=== PATIENT | male | born 1960 | race Caucasian/White ===

== ENCOUNTER 2017-06-21 19:58 | Inpatient (IN) | payer OTHER ==
[~2017-06-21] VITALS: Ht 172.7 cm; Wt 64.9 kg
[~2017-06-21 19:58] MED LIST: ASPIR 8181 MG PO; AUGMENTIN 875 M1 TAB PO; METOPROLOL SUCC50 M1 PO
--- NOTE | 2017-06-21 20:35 | ED DYSPNEA/ASTHMA COMPLAINT ---
History of Present Illness General Chief Complaint: Dyspnea (COPD, CHF, Other) Stated Complaint: SOB X 4 DAYS Source: patient, family, old records Exam Limitations: no limitations Vital Signs & Intake/Output Vital Signs & Intake/Output Vital Signs Date Time Temp Pulse Resp B/P B/P Pulse O2 O2 Flow FiO2 Mean Ox Delivery Rate 06/21 2200 98.1 77 22 137/83 100 Nasal 5.0L Cannula 06/22 2047 99 Nasal 6.0L Cannula 06/22 1999 97.3 88 24 151/110 94 Nasal 6.0L Cannula Allergies Coded Allergies: NO KNOWN ALLERGIES (06/05/13) Reconcile Medications Acetaminophen 500 MG TABLET 4 TAB PO 5XDAILY PRN PAIN (Reported) Albuterol Sulfate (Proair Hfa) 90 MCG HFA.AER.AD 2 PUF INH PRN COPD (Reported ) Albuterol Sulfate 2.5 MG/3 ML (0.083 %) VIAL.NEB 1 Vial INH/MIMI PRN COPD ( Reported) Aspirin (Ecotrin*) 81 MG TABLET.DR 1 TAB PO DAILY HEART/BLOOD (Reported) Budesonide/Formoterol Fumarate (Symbicort 160-4.5 Mcg Inhaler) 160 MCG-4.5 MCG/ ACTUATION HFA.AER.AD 2 PUF INH BID COPD (Reported) Ibuprofen (Advil) 200 MG CAPSULE 1-2 TAB PO PRN PAIN/INFLAMMATION (Reported) Metoprolol Succinate 100 MG TAB.ER.24H 1 TAB PO DAILY HEART/BP (Reported) Nitroglycerin 0.4 MG TAB.SUBL 1 TAB SL AD PRN CHEST PAIN (Reported) 1st sign of attack; may repeat every 5 minutes until relief; if pain persists after 3 tablets in 15 minutes, prompt medical att Tamsulosin HCl (Flomax) 0.4 MG CAP.ER.24H 1 CAP PO DAILY PROSTATE (Reported) Core Measure Meds Pre-Hospital aspirin Triage Note: PT TO TRIAGE C/O SOB AND "COLD LIKE SYMPTOMS" X 4 DAYS. PT BASELINE 6L NC D/T COPD AND CURRENT SOME DAY SMOKER. 02 SAT IN TRIAGE 94% PT WITH INCREASED WORK OF BREATHING, WHEEZES NOTED THROUGHOUT AND HYPERTENSIVE 151/110. Triage Nurses Notes Reviewed? yes Onset: 2 days Duration: day(s):, constant, continues in ED, getting worse Timing: recent history Severity: severe Activities at Onset: rest Prior Episodes/Possible Cause: allergen exposure, illness exposure Modifying Factors: Worsens With: movement. Associated Symptoms: cough, wheezing, weakness HPI: 2 days prior to admission patient complains of harsh nonproductive cough progressive shortness of breath wheezing starting himself on prednisone. He denies fever chills nausea vomiting diarrhea abdominal pain chest pain headache dysuria rash bleeding. Past History Travel History Traveled to [place] past 21 day No Medical History Any Pertinent Medical History? 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 No Review of Systems Review of Systems Constitutional: Reports: no symptoms. EENTM: Reports: no symptoms. Respiratory: Reports: see HPI, cough, short of breath, wheezing. Denies: sputum production. Cardiovascular: Reports: no symptoms. GI: Reports: no symptoms. Genitourinary: Reports: no symptoms. Musculoskeletal: Reports: no symptoms. Skin: Reports: no symptoms. Neurological/Psychological: Reports: no symptoms. Hematologic/Endocrine: Reports: no symptoms. Immunologic/Allergic: Reports: no symptoms. All Other Systems: Reviewed and Negative Physical Exam Physical Exam General Appearance: well developed/nourished, alert, awake, anxious, severe distress Head: atraumatic, normal appearance Eyes: Bilateral: normal appearance, PERRL, EOMI. Ears, Nose, Throat: normal pharynx, normal ENT inspection, hearing grossly normal Neck: normal inspection, supple, full range of motion, no midline tenderness Respiratory: chest non-tender, decreased breath sounds, rhonchi, wheezing, respiratory distress Cardiovascular: regular rate/rhythm, normal peripheral pulses, norml femoral pulses equa Peripheral Pulses: 4+ carotid (R), 4+ carotid (L) Gastrointestinal: normal bowel sounds, soft, non-tender, no organomegaly Extremities: normal inspection, normal capillary refill, normal range of motion, no edema Neurologic/Psych: no motor/sensory deficits, awake, alert, oriented x 3, normal mood/affect, compensation/benefits specialist II-XII nml as tested Skin: intact, normal color, warm/dry Lymphatic: no anterior cervical suma Core Measures ACS in differential dx? No CVA/TIA Diagnosis No Sepsis Present: No Sepsis Focused Exam Completed? No Progress Differential Diagnosis: asthma, bronchitis, CHF, COPD, pneumonia Plan of Care: Orders Procedure Date/time Status Regular Diet 06/22 B Active Patient Data 06/21 2238 Active OXYGEN SETUP (GEN) 06/21 2218 Active Saline Lock 06/21 2218 Active Admit to inpatient 06/21 2218 Active Vital Signs 06/21 2218 Active Activity/Ambulation 06/21 2218 Active BLOOD CULTURE 06/21 2218 Active Code Status 06/21 2218 Active ARTERIAL BLOOD GAS (GEN) 06/22 2027 Active BLOOD CULTURE 06/22 2027 Active TROPONIN LEVEL 06/22 2027 Complete MAGNESIUM 06/22 2027 Complete COMPREHENSIVE METABOLIC PANEL 06/22 2027 Complete CBC WITHOUT DIFFERENTIAL 06/22 2027 Complete B-TYPE NATRIURETIC PEP (BNP) 06/22 2027 Complete EKG 06/22 1999 Active Current Medications Sig/Rebel Start time Last Medication Dose Stop Time Status Admin Magnesium Sulfate 1 GM Q2H 06/21 2029 AC 06/21 (Mag Sulfate in D5) 06/22 Dextrose/Water 100 ML (D5W) Laboratory Tests 06/21/172039: pH 7.38, pCO2 50 H, pO2 174 H, HCO3 29 H, ABG O2 Sat (Measured) 98.0, P-50 ( Temp Corrected) N, Carboxyhemoglobin 0.6 L, O2 Concentration % 6L, Temperature 97.3, O2 Delivery Method NC, Phlebotomy Draw Site RIGHT RADIAL 06/21/172029: Anion Gap 11, Estimated GFR > 60, BUN/Creatinine Ratio 28.6 H, Glucose 114 H, Calcium 9.6, Magnesium 2.1, Total Bilirubin 1.0, AST 68 H, ALT 53, Alkaline Phosphatase 55, Troponin I < 0.01, Gla-D-Banjvshtdnp Pept 173 H, Total Protein 7.5, Albumin 4.4, Globulin 3.1, Albumin/Globulin Ratio 1.4, CBC w Diff NO MAN DIFF REQ, RBC 5.20, MCV 89.8, MCH 30.0, MCHC 33.4, RDW 13.7, MPV 8.8, Gran % 75.4 H, Lymphocytes % 13.0 L, Monocytes % 11.5 H, Eosinophils % 0, Basophils % 0.1, Absolute Granulocytes 6.9 H, Absolute Lymphocytes 1.2, Absolute Monocytes 1.0 H, Absolute Eosinophils 0, Absolute Basophils 0 Microbiology 06/21 221 BLOOD: Blood Culture - ORD 06/21 2029 BLOOD: Blood Culture - RECD Diagnostic Imaging: Viewed by Me: Radiology Read. Discussed w/RAD: Radiology Read. CXR Impression: no acute abnormality, Lung hyperinflation. No consolidations. Initial ED EKG: normal axis, normal intervals, normal p-waves, normal QRS complex, normal sinus rhythm, no ST T wave changes Prior EKG: unchanged Rhythm Strip: normal sinus rhythm Departure Departure Time of Disposition: 2256 Disposition: STILL A PATIENT Condition: Stable Clinical Impression Primary Impression: Decompensated COPD with exacerbation (chronic obstructive pulmonary disease ) Departure Forms: Customer Survey General Discharge Information Admission Note Spoke With: Anthony Miller MD Documentation of Exam: Documentation of any treatments & extenuating circumstances including Concerns Regarding Discharge (functional status, medication knowledge or non-compliance, living conditions, etc.) that warrant an admission rather than observation: Supplemental oxygen serial beta agonist nebs medication adjustment IV antibiotics IV steroids physical therapy continuing care discharge planning Critical Care Note Critical Care Note Critical Care Time: 30-74 min (45)
[2017-06-21 20:41] LABS: ABSOLUTE BASOPHIL COUNT 0 /CUMM (0.0-0.2); ABSOLUTE EOSINOPHIL COUNT 0 /CUMM (0.0-0.7); ABSOLUTE GRANULOCYTE CT 6.9 /CUMM (1.4-6.5); ABSOLUTE LYMPH COUNT 1.2 /CUMM (1.2-3.4); BASOPHIL % 0.1 % (0.0-2.0); EOSINOPHIL % 0 % (0-5); GRANULOCYTE % 75.4 % (42.2-75.2); HEMATOCRIT 46.7 % (42-52); MEAN CORPUSCULAR HGB CONC 33.4 G/DL (33.0-37.0); MEAN CORPUSCULAR VOLUME 89.8 FL (80.0-94.0); MEAN PLATELET VOLUME 8.8 FL (7.4-10.4); PLATELET COUNT 207 /CUMM (130-400); RBC DISTRIBUTION WIDTH 13.7 % (11.5-14.5); WHITE BLOOD CELL COUNT 9.1 /CUMM (4.8-10.8)
--- NOTE | 2017-06-21 20:54 | RADIOLOGY REPORT ---
EXAMINATION: CHEST 1 VIEW CLINICAL INFORMATION: COPD. Rhonchi. Cough. COMPARISON: 01/06/2014. TECHNIQUE: An AP view of the chest is provided. FINDINGS: The cardiac silhouette is not enlarged. The mediastinal and hilar contours are unremarkable. There are neither pleural effusions nor pneumothoraces. There are no consolidations. The lungs are hyperinflated. The osseous structures are unremarkable. IMPRESSION: Lung hyperinflation. No consolidations.
[2017-06-21] MEDS ORDERED: METOPROLOL SUC100 M2 PO (21:35)
[2017-06-21] MEDS ORDERED: NITROGLYCERIN0.4 M1 SL (21:35)
[2017-06-21] MEDS ORDERED: PROAIR HFA8.5 GM INH (21:35)
[2017-06-21] MEDS ORDERED: SYMBICORT 16010.2 GM INH (21:36)
[2017-06-21] MEDS ORDERED: ALBUTEROL2.5 MG/3 M INH/SOL (21:36)
[2017-06-21] MEDS ORDERED: FLOMAX0.4 M1 PO (21:36)
[2017-06-21] MEDS ORDERED: ACETAMINOPHEN500 M4 PO (21:37)
[2017-06-21] MEDS ORDERED: ASPIRIN EC81 M1 PO (21:38)
[2017-06-21] MEDS ORDERED: ADVIL200 M1 PO (21:38)
--- NOTE | 2017-06-21 23:17 | History & Physical ---
Hudson Adams MD 06/21/17 1202: General Information and HPI MD Statement: I have seen and personally examined DUARTE SCHULZ and documented this H&P. The patient is a 57 year old M who presented with a patient stated chief complaint of [COPD exacerbation with a syncopal episode]. Source of Information: patient, old records Exam Limitations: poor historian History of Present Illness: Patient is a 57-year-old male with a PMH significant for COPD on 6 L home O2 at baseline, HTN, paroxysmal A. fib not on anticoagulation by patient's choice, CAD with CT approximately 4 years ago, CVA approximately 4 years ago, who presents complaining of a one-week history of worsening dyspnea, cough and a syncopal episode. Patient states that for the last week he has had worsening dyspnea which started on his exertional and then became constant. His normal nebulizer and inhaler treatments did not improve his dyspnea, he also use prednisone that was prescribed for a friend which also did not help his symptoms, patient has had periods of being on chronic prednisone. He has also had a nonproductive cough with chest pain of the lateral chest bilaterally, worsened with cough. Describes this pain as sharp and constant. Today he experienced shortness of breath, lightheadedness, diaphoresis during a coughing spell during which he lost consciousness. This episode was unwitnessed, however he reports that this has happened previously with severe COPD exacerbations. In the past patient has been intubated in the ICU for a COPD exacerbation approximately 5 years ago, his last hospital admission for COPD was approximately 4 years ago. 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 Wheezing, Of note the patient reports approximately six-month history of orthopnea requiring 5 pillows to sleep comfortably, he also reports intermittent paroxysmal nocturnal dyspnea. Patient also reports taking approximately 2 g of Tylenol daily for chest pain with breakthrough ibuprofen. Patient denies any fever, chills, nausea, vomiting. [facility] for [facility] and pulmonology. Allergies/Medications Allergies: Coded Allergies: NO KNOWN ALLERGIES (06/05/13) Home Med list Acetaminophen 500 MG TABLET 4 TAB PO 5XDAILY PRN PAIN (Reported) Albuterol Sulfate (Proair Hfa) 90 MCG HFA.AER.AD 2 PUF INH PRN COPD (Reported ) Albuterol Sulfate 2.5 MG/3 ML (0.083 %) VIAL.NEB 1 Vial INH/MIMI PRN COPD ( Reported) Aspirin (Ecotrin*) 81 MG TABLET.DR 1 TAB PO DAILY HEART/BLOOD (Reported) Budesonide/Formoterol Fumarate (Symbicort 160-4.5 Mcg Inhaler) 160 MCG-4.5 MCG/ ACTUATION HFA.AER.AD 2 PUF INH BID COPD (Reported) Ibuprofen (Advil) 200 MG CAPSULE 1-2 TAB PO PRN PAIN/INFLAMMATION (Reported) Metoprolol Succinate 100 MG TAB.ER.24H 1 TAB PO DAILY HEART/BP (Reported) Nitroglycerin 0.4 MG TAB.SUBL 1 TAB SL AD PRN CHEST PAIN (Reported) 1st sign of attack; may repeat every 5 minutes until relief; if pain persists after 3 tablets in 15 minutes, prompt medical att Tamsulosin HCl (Flomax) 0.4 MG CAP.ER.24H 1 CAP PO DAILY PROSTATE (Reported) Past History Travel History Traveled to [place] past 21 day No Medical History Neurological: CVA EENT: NONE Cardiovascular: AFIB, hypertension, myocardial infarction Respiratory: COPD Gastrointestinal: NONE Hepatic: NONE Renal: NONE Musculoskeletal: NONE Psychiatric: NONE Endocrine: NONE Blood Disorders: NONE Cancer(s): NONE 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 Home Services at Home: None Primary Language: Honduran Smoking Status: Former Smoker (90 pack year hx quit 3 wks ago) ETOH Use: denies use Illicit Drug Use: marijuana (last used 4 days ago) Living Will? no Functional Ability ADLs Independent: dressing, eating, toileting, bathing. Ambulation: independent IADLs Independent: shopping, housework, finances, food prep, telephone, transportation , medication admin. Review of Systems Review of Systems Constitutional: Denies: chills, fever. EENTM: Reports: no symptoms. Cardiovascular: Reports: chest pain, orthopena, syncope. Denies: palpitations, peripheral edema. Respiratory: Reports: cough, orthopnea, short of breath, wheezing. Denies: hemoptysis, sputum production. GI: Reports: no symptoms. Genitourinary: Reports: no symptoms. Musculoskeletal: Reports: no symptoms. Skin: Reports: no symptoms. Neurological/Psychological: Reports: no symptoms. Exam & Diagnostic Data Last 24 Hrs of Vital Signs/I&O Vital Signs Date Time Temp Pulse Resp B/P B/P Pulse O2 O2 Flow FiO2 Mean Ox Delivery Rate 06/22 0018 97.9 87 25 137/83 06/21 2330 84 16 133/90 98 Nasal 6.0L Cannula 06/211 98.1 77 22 137/83 100 Nasal 5.0L Cannula 06/22 2047 99 Nasal 6.0L Cannula 06/22 1999 97.3 88 24 151/110 94 Nasal 6.0L Cannula Intake & Output 06/22 0800 06/22 0000 06/21 1600 Intake Total 1100 Output Total Balance 1100 Intake, IV 1000 Intake, Oral 100 Patient 160 lb Weight Weight Reported by Patient Measurement Method Physical Exam General Appearance Alert, Oriented X3, Cooperative, Mild Distress (respiratory) Skin Temp/Moisture Exam: Warm/Dry Sepsis Skin Exam (color): Normal for Ethnicity HEENT Atraumatic, PERRLA, EOMI Cardiovascular Regular Rate, Normal S1, Normal S2 Lungs diffuse expiratory wheezing, with prolonged expiratory phase, mild respiratory distress, using accessory muscles Abdomen Normal Bowel Sounds, Soft, No Tenderness Neurological Normal Speech, Normal Tone, Sensation Intact Extremities No Clubbing, No Cyanosis, No Edema Last 24 Hrs of Labs/Fercho: Laboratory Tests 06/22/17 0141: Urine Opiates Screen < 100, Methadone Screen < 40, Barbiturate Screen < 60, Ur Phencyclidine Scrn < 6.00, Amphetamines Screen < 100, U Benzodiazepines Scrn < 85, Urine Cocaine Screen < 50, Urine Cannabis Screen > 80.00 H 06/21/172039: pH 7.38, pCO2 50 H, pO2 174 H, HCO3 29 H, ABG O2 Sat (Measured) 98.0, P-50 ( Temp Corrected) N, Carboxyhemoglobin 0.6 L, O2 Concentration % 6L, Temperature 97.3, O2 Delivery Method NC, Phlebotomy Draw Site RIGHT RADIAL 06/21/172029: Anion Gap 11, Estimated GFR > 60, BUN/Creatinine Ratio 28.6 H, Glucose 114 H, Calcium 9.6, Magnesium 2.1, Total Bilirubin 1.0, AST 68 H, ALT 53, Alkaline Phosphatase 55, Troponin I < 0.01, Tea-W-Qcwpzgzwfip Pept 173 H, Total Protein 7.5, Albumin 4.4, Globulin 3.1, Albumin/Globulin Ratio 1.4, CBC w Diff NO MAN DIFF REQ, RBC 5.20, MCV 89.8, MCH 30.0, MCHC 33.4, RDW 13.7, MPV 8.8, Gran % 75.4 H, Lymphocytes % 13.0 L, Monocytes % 11.5 H, Eosinophils % 0, Basophils % 0.1, Absolute Granulocytes 6.9 H, Absolute Lymphocytes 1.2, Absolute Monocytes 1.0 H, Absolute Eosinophils 0, Absolute Basophils 0, Acetaminophen Pending Microbiology 06/22 149 LOWER RESP: Respiratory Culture - RECD 06/22 149 LOWER RESP: Gram Stain - RECD 06/22 149 BLOOD: Blood Culture - RECD 06/22 129 NASOPHARYN: Influenza Virus A & B Rapid Smear - RECD 06/21 2029 BLOOD: Blood Culture - RECD Diagnostic Data EKG Results NSR, HR 78, QTc 417, no significant ST-T changes CXR Results The cardiac silhouette is not enlarged. The mediastinal and hilar contours are unremarkable. There are neither pleural effusions nor pneumothoraces. There are no consolidations. The lungs are hyperinflated. The osseous structures are unremarkable. IMPRESSION: Lung hyperinflation. No consolidations. Assessment/Plan Assessment: Patient is a 57-year-old male with a PMH significant for COPD on 6 L home O2 at baseline, HTN, paroxysmal A. fib not on anticoagulation by patient's choice, CAD with CT approximately 4 years ago, CVA approximately 4 years ago, who presents complaining of a one-week history of worsening dyspnea, cough and a syncopal episode. Patient's syncopal episode was associated with a coughing spell, diaphoresis, lightheadedness. Vital signs on admission: T 97.3, P 88, RR 24, BP 151/110, pulse ox 94% on 6 L Labs: ABG: trop < 0.01, 7.38/50/174/29 ProBNP mildly elevated at 173 Problem list #Acute on chronic hypercarbic respiratory failure #COPD exacerbation, likely secondary to URI #Syncopal episode, likely vasovagal #Chronic medical problems Plan -Admit to telemetry -Continuous telemetry monitoring, given history of A. fib and recent syncopal episode must rule out arrhythmia -Rule out CT given chest pain and syncopal episode, serial troponin and EKG -echo -TRC/nebs -IV azithromycin -IV Solu-Medrol 40 mg every 8 hours -Follow-up sputum culture, blood cultures, flu swab -Cardiology consult in the a.m., patient follows at [facility] -Pulmonology consult in the a.m., patient follows at the [facility] -Obtain records from [facility] -Follow-up acetaminophen levels -Encouraged continued smoking cessation -Nicotine patch -Continue home medications Diet: Heart healthy DVT prophylaxis: Lovenox, Alps CODE STATUS: DNI As Ranked By This Provider Problem List: 1. Decompensated COPD with exacerbation (chronic obstructive pulmonary disease ) Core Measures/Misc (12/03) Acute Coronary Syndrome ACS Diagnosis: No Congestive Heart Failure Congestive Heart Failure Diagnosis No Cerebrovascular Accident CVA/TIA Diagnosis: No VTE (View Protocol) VTE Risk Factors Smoker No Mechanical VTE Prophylaxis d/t N/A MechProphylax Ordered No VTE Pharm Prophylaxis d/t NA PharmProphylax ordered Sepsis (View protocol) Sepsis Present: No Annie Diop 06/22/17 0351: Resident Review Statement Resident Statement: examined this patient, discussed with commissioner of internal revenue Other Findings: 57-year-old gentleman former smoker recently quit 3 weeks ago, with past medical history significant for COPD on 6 L of nasal cannula at home, history of intubation for COPD exacerbation about 5 years ago, polysubstance abuse, BPH depression, hypertension, proximal A. fib on aspirin and not on anticoagulation secondary to patient's patient's choice, coronary artery disease, CT and ?CVA/ TIA proximally 4 years ago with no residual weakness coming in for evaluation of worsening shortness of breath of 4 days duration associated with cough. Apparently he is also on chronic prednisone which he ran out off and he used his friend's prednisone the last 2 days earlier today he had a unwitnessed syncopal episode after he coughed. Loss of consciousness was according to him approximately a few seconds. Earlier today he also had an episode of chest pain which worsened when his cough, nonradiating sharp and constant, associated with lightheadedness and diaphoresis. Endorses orthopnea and sleeps on 5 pillows at baseline and proximal nocturnal dyspnea. Denies fever, chills, nausea, vomiting, rash, weakness/tingling of extremities, difficulty speaking. Of note he does use 2 g IV Tylenol alternating with ibuprofen on a daily basis for chronic pain He has most of his follow-ups done at [facility]. His radiation safety officer and instructional technology director are also at the [facility]. Vitals temperature 98.1, heart rate 77, respiratory 22, blood pressure 151/110-- > 137/83, 100% on 5 L On examination patient is moderately respiratory distress, muscles of accessory respiratory muscles in use with audible wheezes noted, RS diffuse expiratory wheezing throughout all lung areas, CVS S1-S2 no murmurs appreciated, abdomen soft nontender, no pedal edema noted Labs significant for W BC 9.1, hemoglobin 15.6, hematocrit 46.7, platelet 27, sodium 139, potassium 4.7, chloride 93, bicarbonate 35, B1 20, creatinine 0.7 Glucose 114, AST 68, ALT 53, ABG 7.38/50/174/29 Chest x-ray shows no acute pathology EKG normal sinus rhythm, rate 77, QTC 417 Assessment and plan: Syncope/Paroxyxmal Atrial fibrillation/Hypertension: His syncope was likely vasovagal however will admit to telemetry floor to rule out any cardiogenic pathology continuous cardiac monitoring Trend troponin/EKG Echocardiogram Cardio consult in a.m. Continue metoprolol and aspirin Acute on chronic COPD exacerbation likely secondary to upper respiratory infection TRCnebs, continue with pro-air Continue with azithromycin, and IV Solu-Medrol 40 every 8 Pulm consult in the morning BPH Continue Flomax Smoking cessation/marijuana use Nicotine patch Follow-up urine tox and Tylenol level DVT prophylaxis with subcutaneous Lovenox Patient is a DNI but he is okay with chest compressions Anthony Miller 06/22/17 0525: Attending MD Review Statement Attending Statement Attending MD Statement: examined this patient, discuss w/resident/PA/LAND EXAMINER, agreed w/resident/PA/LAND EXAMINER, reviewed EMR data (avail), reviewed images, amended to note Attending Assessment/Plan: CC: Shortness of breath PMH: COPD on 6 L nasal cannula oxygen, depression, chest pain, HTN, A. fib, CAD S/P CT, no stents, CVA with no residual weakness Patient presented to ER for 1 week history of dry cough, wheezing, shortness of breath initially with exertion and now even at rest, waking up in the night with shortness of breath, cannot lie down flat. Symptoms followed after nasal congestion and nasal discharge. 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 He also complains of bilateral chest pain/ soreness with excessive coughing, nonpleuritic, nonradiating. Today with a coughing bout he felt lightheaded, could not catch air and then passed out. Next thing he remembers is waking up on the floor. For the severe at the of symptoms he came to ER. He denies any fever, chills, nausea, vomiting, constipation, urinary symptoms, complete ROS unremarkable otherwise. Patient is compliant with his doctor's visit and medication, he usually does not go to ER, last hospitalization for COPD approximately 4-5 years back. Vitals: Afebrile, pulse 88, RR 24, blood pressure 151/110, saturating 94% on 6 L nasal cannula. On exam: A O 3, cooperative, thin built, in moderate respiratory distress, accessory muscles in use, neck supple, JVD normal, no lymphadenopathy, mucosa moist, no focal neurological deficit, no dependent edema, no obvious skin rashes or inflammation CVS: S1-S2, RRR. RS: Prolonged expiration, bilateral wheezing extensively. Abdomen: Soft, NT, ND, bowel sounds present. Peripheral pulses perfusion normal CXR: Lung hyperinflation. No consolidations. Assessment and plan 57-year-old male with extensive past medical history presented in ER for worsening wheezing, shortness of breath, dry cough. He has extensive wheezing on auscultation, accessory muscles in use but he is at his baseline oxygen at 6 L saturating well. ABG showed mild respiratory acidosis which is compensated. Patient appears to have COPD exacerbation, chest x-ray does not have any evidence of pneumonia, no significant leukocytosis or fever. Patient also had an episode of syncope, it appears vasovagal as he had a coughing bout followed by passing out episode but given his cardiac history, and risks factors, we will watch him on telemetry for first 24-48 hours rule out other causes of syncope. + COPD exacerbation + Syncope + Chronic respiratory failure + History of COPD on 6 L nasal cannula oxygen, depression, chest pain, HTN, A. fib, CAD S/P CT, no stents, CVA with no residual weakness - Admit to telemetry - Continuous telemetry monitoring - Serial troponin and EKG - Orthostatic vitals - 2-D echocardiogram in a.m. - Cardiology consult - DVT prophylaxis - Adequate pain control - Continue oxygen support - IV methylprednisolone 40 mg every 8 hours - IV azithromycin - TRC nebulization with albuterol and ipratropium scheduled and when necessary - Mucinex scheduled twice a day - Continue rest of the home medications - Pulmonology consult - f/u influenza test
[2017-06-22 04:36] VITALS: BP 136/80
--- NOTE | 2017-06-22 05:26 | Admission Certification ---
Admission Certification Certification Statement - As attending physician, I certify that at the time of - admission, based on clinical presentation, severity of - symptoms, need for further diagnostic testing and - therapeutic interventions, and risk of adverse outcomes - without in-hospital treatment, in my clinical assessment, - this patient requires an acute hospital stay for a minimum - of two nights or longer. I have also considered psychsocial - factors such as support system, advanced age, financial - issues, cognitive issues, and failed out-patient treatments, - past re-admission history, safety of patient, and lack of - compliance as applicable. Specific rationale supporting this admission is: COPD exacerbation, syncope
--- NOTE | 2017-06-22 07:04 | PN- Housestaff ---
[facility] Subjective Follow-up For: COPD exacerbation possibly secondary to acute bronchitis Syncope Tele-Events Since Last Visit: SR with HR 72-7 Subjective: Patient remained afebrile. Patient seen and examined this morning. Patient using 4 L of oxygen and maintaining saturation 97%. Patient reported having nasal congestion and intermittent cough. Patient denied any chest pain, short of breath, nausea, vomiting, chills, fever, abdominal pain dysuria. Review of Systems Constitutional: Reports: no symptoms. EENTM: Reports: no symptoms. Cardiovascular: Denies: chest pain, palpitations. Respiratory: Reports: cough. Denies: short of breath, sputum production. Gastrointestinal: Reports: no symptoms. Genitourinary: Reports: no symptoms. Musculoskeletal: Reports: no symptoms. Neurological/Psychological: Reports: no symptoms. Objective Last 24 Hrs of Vital Signs/I&O Vital Signs Date Time Temp Pulse Resp B/P B/P Pulse O2 O2 Flow FiO2 Mean Ox Delivery Rate 06/22 0436 97.8 71 22 136/80 98 Nasal 6.0L Cannula 06/22 0428 Nasal 6.0L Cannula 06/22 0419 65 20 100 Nasal 6.0L Cannula 06/22 0018 97.9 87 25 137/83 06/21 2330 84 16 133/90 98 Nasal 6.0L Cannula 06/21 2201 98.1 77 22 137/83 100 Nasal 5.0L Cannula 06/21 2048 99 Nasal 6.0L Cannula 06/21 2000 97.3 88 24 151/110 94 Nasal 6.0L Cannula Intake & Output 06/22 1600 06/22 0800 04 0000 Intake Total 1320 Output Total 900 Balance 420 Intake, IV 1000 Intake, Oral 320 Output, Urine 900 Patient 150 lb 160 lb Weight Weight Reported by Patient Reported by Patient Measurement Method Physical Exam General Appearance: Alert, Oriented X3, Cooperative, No Acute Distress Skin Temp/Moisture Exam: Warm/Dry Sepsis Skin Exam (color): Normal for Ethnicity HEENT: Atraumatic, PERRLA, EOMI Neck: Supple Cardiovascular: Normal S1, Normal S2 Lungs: B/L WHEEZING Abdomen: Soft, No Tenderness Neurological: Normal Speech, Strength at 5/5 X4 Ext, Normal Tone, Sensation Intact Extremities: No Edema Assessment/Plan Assessment: Patient is a 57-year-old male with a PMH significant for COPD on 6 L home O2 at baseline, HTN, paroxysmal A. fib not on anticoagulation by patient's choice, CAD with ND approximately 4 years ago, CVA approximately 4 years ago, who presents complaining of a one-week history of worsening dyspnea, cough and a syncopal episode. We are following the patient on telemetry floor for following problems: Syncope episode: -Probably due to vasovagal syncope -We will rule out any arrhythmias or acute cardiac ischemic event. -Serial EKGs and troponins -Cardiac consult -Echocardiogram -Orthostatic vitals COPD exacerbation: -Possibly secondary to acute bronchitis -Chronic hypercarbic respiratory failure -Patient COPD exacerbation secondary to upper respiratory tract infection -IV Solu-Medrol -TRC nebulization -Mucinex -Supplemental oxygen as needed to keep oxygen saturation above 92% -IV azithromycin -Follow sputum and blood cultures -Influenza test is pending -Pulmonology consult Smoking cessation: -Nicotine patch as needed History of hypertension: -Continue home medications History of BPH: -Continue home medications History of A. fib and CAD: -Not on any anticoagulation -Continue home medications DVT prophylaxis: -Mechanical and subcutaneous Lovenox CODE STATUS: DNI Problem List: 1. COPD exacerbation Pain Ratin Pain Location: NONE Pain Goal: Remain pain free Pain Plan: PAIN PATHWAY Tomorrow's Labs & Rationales: NONE Favio Juarez MD 06/22/17 1033: Attending MD Review Statement Attending Statement Attending MD Statement: examined this patient, discuss w/resident/PA/PSYCHOMETRIST, agreed w/resident/PA/PSYCHOMETRIST, reviewed EMR data (avail) Attending Assessment/Plan: 57M PMH COPD on 6 L nasal cannula oxygen, depression, chest pain, HTN, A. fib, CAD S/P ND, no stents, CVA with no residual weakness admitted with worsening shortness of breath and cough with syncopal episode provoked by coughing fit, in the setting of COPD exacerbation secondary to acute bronchitis. Patient reports that he still has difficulty breathing and moving air in and out of his lungs, though it is better than yesterday. He is having a dry cough. He denies chest pain, palpitations, diaphoresis. No further episodes of syncope. He is currently saturating well on 4L NC. No evidence of pneumonia clinically or by imaging. 1. COPD Exacerbation 2. Acute bronchitis 3. Chronic hypoxemic respiratory failure 4. Syncope, most likely vasovagal Plan - Continue on telemetry - Continue Solumedrol at current dose - Continue Azithromyin - Collect sputum culture if possible - Follow cardiology recommendations - Continue home medications - DVT PPx
[2017-06-22 15:20] VITALS: BP 112/60; BP 116/54
--- NOTE | 2017-06-22 18:44 | Cons- Pulmonary ---
General Information and HPI Consulting Request Date of Consult: 06/22/17 Requested By: Med team History of Present Illness: Patient is a 57-year-old male with a PMH significant for COPD on 6 L home O2 at baseline, HTN, paroxysmal A. fib not on anticoagulation by patient's choice, CAD with MT approximately 4 years ago, CVA approximately 4 years ago, who presents complaining of a one-week history of worsening dyspnea, cough and a syncopal episode. Patient states that for the last week he has had worsening dyspnea which started on his exertional and then became constant. His normal nebulizer and inhaler treatments did not improve his dyspnea, he also use prednisone that was prescribed for a friend which also did not help his symptoms, patient has had periods of being on chronic prednisone. He has also had a nonproductive cough with chest pain of the lateral chest bilaterally, worsened with cough. Describes this pain as sharp and constant. Today he experienced shortness of breath, lightheadedness, diaphoresis during a coughing spell during which he lost consciousness. This episode was unwitnessed, however he reports that this has happened previously with severe COPD exacerbations. In the past patient has been intubated in the ICU for a COPD exacerbation approximately 5 years ago, his last hospital admission for COPD was approximately 4 years ago. 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 Wheezing, Of note the patient reports approximately six-month history of orthopnea requiring 5 pillows to sleep comfortably, he also reports intermittent paroxysmal nocturnal dyspnea. Patient also reports taking approximately 2 g of Tylenol daily for chest pain with breakthrough ibuprofen. Patient denies any fever, chills, nausea, vomiting. Patient follows with the [place] for cardiology and pulmonology. Allergies/Medications Allergies: Coded Allergies: NO KNOWN ALLERGIES (06/05/13) Home Med List: Acetaminophen 500 MG TABLET 4 TAB PO 5XDAILY PRN PAIN (Reported) Albuterol Sulfate (Proair Hfa) 90 MCG HFA.AER.AD 2 PUF INH PRN COPD (Reported ) Albuterol Sulfate 2.5 MG/3 ML (0.083 %) VIAL.NEB 1 Vial INH/MIMI PRN COPD ( Reported) Aspirin (Ecotrin*) 81 MG TABLET.DR 1 TAB PO DAILY HEART/BLOOD (Reported) Budesonide/Formoterol Fumarate (Symbicort 160-4.5 Mcg Inhaler) 160 MCG-4.5 MCG/ ACTUATION HFA.AER.AD 2 PUF INH BID COPD (Reported) Ibuprofen (Advil) 200 MG CAPSULE 1-2 TAB PO PRN PAIN/INFLAMMATION (Reported) Metoprolol Succinate 100 MG TAB.ER.24H 1 TAB PO DAILY HEART/BP (Reported) Nitroglycerin 0.4 MG TAB.SUBL 1 TAB SL AD PRN CHEST PAIN (Reported) 1st sign of attack; may repeat every 5 minutes until relief; if pain persists after 3 tablets in 15 minutes, prompt medical att Tamsulosin HCl (Flomax) 0.4 MG CAP.ER.24H 1 CAP PO DAILY PROSTATE (Reported) Review of Systems Review of Systems Constitutional: Denies: see HPI. Comments Denies: chills, fever. EENTM: Reports: no symptoms. Cardiovascular: Reports: chest pain, orthopena, syncope. Denies: palpitations, peripheral edema. Respiratory: Reports: cough, orthopnea, short of breath, wheezing. Denies: hemoptysis, sputum production. GI: Reports: no symptoms. Genitourinary: Reports: no symptoms. Musculoskeletal: Reports: no symptoms. Skin: Reports: no symptoms. Neurological/Psychological: Reports: no symptoms. 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 Home Services at Home: None Primary Language: [place] Smoking Status: Current Some Day Smoker (90 pack year hx quit 3 wks ago) ETOH Use: denies use Illicit Drug Use: marijuana (last used 4 days ago) Living Will? no Functional Ability ADLs Independent: dressing, eating, toileting, bathing. Ambulation: independent IADLs Independent: shopping, housework, finances, food prep, telephone, transportation , medication admin. Exam & Diagnostic Data Last 24 Hrs of Vital Signs/I&O Vital Signs Date Time Temp Pulse Resp B/P B/P Pulse O2 O2 Flow FiO2 Mean Ox Delivery Rate 06/22 1520 97.8 70 22 116/54 94 06/22 1520 97.5 75 22 112/60 98 06/22 1035 Nasal 6.0L Cannula 06/22 1034 96 Nasal 6.0L Cannula 06/22 0934 66 120/78 06/22 0934 66 120/78 06/22 0800 96 Nasal 2.0L Cannula 06/22 0436 97.8 71 22 136/80 98 Nasal 6.0L Cannula 06/22 0428 Nasal 6.0L Cannula 06/22 0419 65 20 100 Nasal 6.0L Cannula 06/22 0018 97.9 87 25 137/83 06/21 2330 84 16 133/90 98 Nasal 6.0L Cannula 06/21 2201 98.1 77 22 137/83 100 Nasal 5.0L Cannula 06/218 99 Nasal 6.0L Cannula 06/22 1999 97.3 88 24 151/110 94 Nasal 6.0L Cannula Intake & Output 06/22 1600 06/22 0800 06/22 0000 Intake Total 320 1320 Output Total 900 Balance 320 420 Intake, IV 20 1000 Intake, Oral 300 320 Output, Urine 900 Patient 150 lb 160 lb Weight Weight Reported by Patient Reported by Patient Measurement Method Last 48 Hrs of Labs/Fercho: Laboratory Tests 06/22/17 0325: Troponin I < 0.01 06/22/17 0141: Urine Opiates Screen < 100, Methadone Screen < 40, Barbiturate Screen < 60, Ur Phencyclidine Scrn < 6.00, Amphetamines Screen < 100, U Benzodiazepines Scrn < 85, Urine Cocaine Screen < 50, Urine Cannabis Screen > 80.00 H 06/21/172039: pH 7.38, pCO2 50 H, pO2 174 H, HCO3 29 H, ABG O2 Sat (Measured) 98.0, P-50 ( Temp Corrected) N, Carboxyhemoglobin 0.6 L, O2 Concentration % 6L, Temperature 97.3, O2 Delivery Method NC, Phlebotomy Draw Site RIGHT RADIAL 06/21/17 2030: Anion Gap 11, Estimated GFR > 60, BUN/Creatinine Ratio 28.6 H, Glucose 114 H, Calcium 9.6, Magnesium 2.1, Total Bilirubin 1.0, AST 68 H, ALT 53, Alkaline Phosphatase 55, Troponin I < 0.01, Ayq-O-Ktznphqpcjn Pept 173 H, Total Protein 7.5, Albumin 4.4, Globulin 3.1, Albumin/Globulin Ratio 1.4, CBC w Diff NO MAN DIFF REQ, RBC 5.20, MCV 89.8, MCH 30.0, MCHC 33.4, RDW 13.7, MPV 8.8, Gran % 75.4 H, Lymphocytes % 13.0 L, Monocytes % 11.5 H, Eosinophils % 0, Basophils % 0.1, Absolute Granulocytes 6.9 H, Absolute Lymphocytes 1.2, Absolute Monocytes 1.0 H, Absolute Eosinophils 0, Absolute Basophils 0, Acetaminophen < 10.0 L Laboratory Tests 06/22 06/22 06/21 0325 0141 2039 Blood Gas pH (7.35 - 7.45 PH) 7.38 pCO2 (35 - 45 TORR) 50 H pO2 (80 - 100 TORR) 174 H HCO3 (21 - 28 MEQ/L) 29 H ABG O2 Sat (Measured) (>96.0 %) 98.0 P-50 (Temp Corrected) N Carboxyhemoglobin (1.5 - 5.0 %) 0.6 L O2 Concentration % 6L Temperature (97.0 - 100.0 FARH) 97.3 O2 Delivery Method NC Chemistry Troponin I (<0.11 ng/ml) < 0.01 Miscellaneous Phlebotomy Draw Site RIGHT RADIAL Toxicology Urine Opiates Screen (>2000 NG/ML) < 100 Methadone Screen (>300 NG/ML) < 40 Barbiturate Screen (>200 NG/ML) < 60 Ur Phencyclidine Scrn (>25 NG/ML) < 6.00 Amphetamines Screen (>1000 NG/ML) < 100 U Benzodiazepines Scrn (>200 NG/ML) < 85 Urine Cocaine Screen (>300 NG/ML) < 50 Urine Cannabis Screen (>50 NG/ML) > 80.00 H 06/21 2029 Chemistry Sodium (137 - 145 mmol/L) 139 Potassium (3.5 - 5.1 mmol/L) 4.7 Chloride (98 - 107 mmol/L) 93 L Carbon Dioxide (22 - 30 mmol/L) 35 H Anion Gap (5 - 16) 11 BUN (9 - 20 mg/dL) 20 Creatinine (0.7 - 1.2 mg/dL) 0.7 Estimated GFR (>60 ml/min) > 60 BUN/Creatinine Ratio (7 - 25 %) 28.6 H Glucose (65 - 99 mg/dL) 114 H Calcium (8.4 - 10.2 mg/dL) 9.6 Magnesium (1.6 - 2.3 mg/dL) 2.1 Total Bilirubin (0.2 - 1.3 mg/dL) 1.0 AST (17 - 59 U/L) 68 H ALT (21 - 72 U/L) 53 Alkaline Phosphatase (< 127 U/L) 55 Troponin I (<0.11 ng/ml) < 0.01 [id number]-[id number] Pept (<125 pg/mL) 173 H Total Protein (6.3 - 8.2 g/dL) 7.5 Albumin (3.5 - 5.0 g/dL) 4.4 Globulin (1.9 - 4.2 gm/dL) 3.1 Albumin/Globulin Ratio (1.1 - 2.2 %) 1.4 Hematology CBC w Diff NO MAN DIFF REQ WBC (4.8 - 10.8 /CUMM) 9.1 RBC (4.70 - 6.10 /CUMM) 5.20 Hgb (14.0 - 18.0 G/DL) 15.6 Hct (42 - 52 %) 46.7 MCV (80.0 - 94.0 FL) 89.8 MCH (27.0 - 31.0 PG) 30.0 MCHC (33.0 - 37.0 G/DL) 33.4 RDW (11.5 - 14.5 %) 13.7 Plt Count (130 - 400 /CUMM) 207 MPV (7.4 - 10.4 FL) 8.8 Gran % (42.2 - 75.2 %) 75.4 H Lymphocytes % (20.5 - 51.1 %) 13.0 L Monocytes % (1.7 - 9.3 %) 11.5 H Eosinophils % (0 - 5 %) 0 Basophils % (0.0 - 2.0 %) 0.1 Absolute Granulocytes (1.4 - 6.5 /CUMM) 6.9 H Absolute Lymphocytes (1.2 - 3.4 /CUMM) 1.2 Absolute Monocytes (0.10 - 0.60 /CUMM) 1.0 H Absolute Eosinophils (0.0 - 0.7 /CUMM) 0 Absolute Basophils (0.0 - 0.2 /CUMM) 0 Toxicology Acetaminophen (10.0 - 30.0 ug/mL) < 10.0 L Microbiology Date/Time Procedure - Status Source Growth 06/22 812 Legionella Antigen - COLB URINE ROUT 06/22 812 Streptococcus pneumoniae Antigen (M - COLB URINE ROUT 06/22 149 Respiratory Culture - CAN LOWER RESP Cancelled: NUMBER OF SQUAMOUS CELLS INDICATES POOR QUALITY SPECIMEN 06/22 149 Gram Stain - CAN LOWER RESP Cancelled: NUMBER OF SQUAMOUS CELLS INDICATES POOR QUALITY SPECIMEN 06/22 149 Blood Culture - RECD BLOOD 06/22 129 Influenza Virus A & B Rapid Smear - RECD NASOPHARYN 06/21 2029 Blood Culture - RES BLOOD Assessment/Plan Impression/Plan: General Appearance Alert, Oriented X3, Cooperative, Mild Distress (respiratory) Skin Temp/Moisture Exam: Warm/Dry Sepsis Skin Exam (color): Normal for Ethnicity HEENT Atraumatic, PERRLA, EOMI Cardiovascular Regular Rate, Normal S1, Normal S2 Lungs diffuse expiratory wheezing, with prolonged expiratory phase, mild respiratory distress, using accessory muscles Abdomen Normal Bowel Sounds, Soft, No Tenderness Neurological Normal Speech, Normal Tone, Sensation Intact Extremities No Clubbing, No Cyanosis, No Edema IMPRESSION Patient is a 57-year-old male with a PMH significant for COPD on 6 L home O2 at baseline, HTN, paroxysmal A. fib not on anticoagulation by patient's choice, CAD with MT approximately 4 years ago, CVA approximately 4 years ago, who presents complaining of a one-week history of worsening dyspnea, cough and a syncopal episode. ISSUES Acute COPDE with chronic hypoxic and hypercarbic resp failure Syncope Sig baseline hypoxia on 6 litres Previous stroke, afib, heart disease, smoking, Prior hypoglycemic episode REC Cont nebs atc Change to po prednisone 50 mg Keep sat at 90 and reduce oxygen if needed Change abx to ceftin 500 bid sputum culture check sugars Cardiac monitoring Will follow Pt is dni Consult Acknowledgment - Thank you for your consult request.
--- NOTE | 2017-06-22 18:53 | Cons- Cardiology ---
General Information and HPI Consulting Request Date of Consult: 06/22/17 Requested By: Favio Juarez MD History of Present Illness: Mr. Carlisle is a 57 year old male with history of coronary artery disease s/p MT, paroxysmal atrial fibrillation, hypertension and COPD. Over the past week this patient has noted shortness of breath with minimal exertion and accompanying orthopnea. He also has a precordial chest pain that radiates toward the base of his neck. The neck discomfort is severe and his chest discomfort is exacerbated by physical exertion and relieved by rest. The chest discomfort is somewhat atypical in being described as a sharp knifelike pain that goes from the right side of his chest through to the left. It should be noted that he does have a cough. There is associated nausea and diaphoresis. He also has noted some dizziness and during a coughing spell lost consciousness. He has also noted palpitations although this is not a prominent symptom. The patient has used his nebulizer and was started on steroid therapy with little improvement in symptoms. Allergies/Medications Allergies: Coded Allergies: NO KNOWN ALLERGIES (06/05/13) Home Med List: Acetaminophen 500 MG TABLET 4 TAB PO 5XDAILY PRN PAIN (Reported) Albuterol Sulfate (Proair Hfa) 90 MCG HFA.AER.AD 2 PUF INH PRN COPD (Reported ) Albuterol Sulfate 2.5 MG/3 ML (0.083 %) VIAL.NEB 1 Vial INH/MIMI PRN COPD ( Reported) Aspirin (Ecotrin*) 81 MG TABLET.DR 1 TAB PO DAILY HEART/BLOOD (Reported) Budesonide/Formoterol Fumarate (Symbicort 160-4.5 Mcg Inhaler) 160 MCG-4.5 MCG/ ACTUATION HFA.AER.AD 2 PUF INH BID COPD (Reported) Ibuprofen (Advil) 200 MG CAPSULE 1-2 TAB PO PRN PAIN/INFLAMMATION (Reported) Metoprolol Succinate 100 MG TAB.ER.24H 1 TAB PO DAILY HEART/BP (Reported) Nitroglycerin 0.4 MG TAB.SUBL 1 TAB SL AD PRN CHEST PAIN (Reported) 1st sign of attack; may repeat every 5 minutes until relief; if pain persists after 3 tablets in 15 minutes, prompt medical att Tamsulosin HCl (Flomax) 0.4 MG CAP.ER.24H 1 CAP PO DAILY PROSTATE (Reported) Review of Systems Review of Systems: A review of symptoms is unremarkable other than the above. 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 Home Services at Home: None Primary Language: Irish Smoking Status: Current Some Day Smoker (90 pack year hx quit 3 wks ago) ETOH Use: denies use Illicit Drug Use: marijuana (last used 4 days ago) Living Will? no Functional Ability ADLs Independent: dressing, eating, toileting, bathing. Ambulation: independent IADLs Independent: shopping, housework, finances, food prep, telephone, transportation , medication admin. Exam & Diagnostic Data Vital Signs and I&O Vital Signs Date Time Temp Pulse Resp B/P B/P Pulse O2 O2 Flow FiO2 Mean Ox Delivery Rate 06/22 1520 97.8 70 22 116/54 94 06/22 1520 97.5 75 22 112/60 98 06/22 1035 Nasal 6.0L Cannula 06/22 1034 96 Nasal 6.0L Cannula 06/22 0934 66 120/78 04/ 0934 66 120/78 / 0800 96 Nasal 2.0L Cannula 06/22 0436 97.8 71 22 136/80 98 Nasal 6.0L Cannula 06/22 0428 Nasal 6.0L Cannula 06/22 0419 65 20 100 Nasal 6.0L Cannula 06/22 0018 97.9 87 25 137/83 / 2330 84 16 133/90 98 Nasal 6.0L Cannula 06/21 2201 98.1 77 22 137/83 100 Nasal 5.0L Cannula 06/218 99 Nasal 6.0L Cannula 06/22 1999 97.3 88 24 151/110 94 Nasal 6.0L Cannula Intake & Output 06/22 1600 04/06 0800 04/06 0000 06/21 1600 06/21 0800 04/ 0000 Intake Total 320 1320 Output Total 900 Balance 320 420 Intake, IV 20 1000 Intake, Oral 300 320 Output, Urine 900 Patient 150 lb 160 lb Weight Weight Reported by Patient Reported by Patient Measurement Method Physical Exam: General: WD/WN male in mild respiratory distress; alert and oriented x 3 HEENT: NC/AT, PERRL, EOMI Neck: +ve JVD, no carotid bruit Heart: RRR w/o murmur Lungs: severely decreased breath sounds with wheezing; no crackles Abdomen: soft, NT, +ve bowel sounds Extremities: no edema Diagnostic Data EKG Results sinus rhythm Assessment/Plan Assessment/Plan * This patient has a severe exacerbation of COPD. There is evidence of increased RV pressure manifesting as jugular venous distention which is to be expected in the setting of severe lung disease. I do not think this patient has decompensated left or right failure despite the elevated RV pressures. I also do not think that he has symptoms of angina or myocardial ischemia. His chest discomfort is atypical and is sharp and likely is a musculoskeletal pain related to coughing. Finally, this patient had a brief syncopal episode due to decreased venous return in the setting of a coughing fit. Repeated coughing will increase the pressures in the thoracic cavity inhibiting venous return and, since the heart cannot pump out what it does not recieve, the patient syncopized. * Recommend. Aggressive pulmonary toilet with albuterol nebulizers and steroid therapy. He needs to quit smoking. * Obtain an echocardiogram to assess his RV function and pressures. * Will consider an outpatient stress test when more stable. * Decrease this patient's high dose beta blockers since this drug may be exacerbating his bronchospasm at this high a dose. Cut the dose in half and begin a calcium channel kole if needed. Continue NTG, aspirin and a statin. Consult Acknowledgment - Thank you for your consult request.
[2017-06-22 22:30] VITALS: BP 132/72
[2017-06-23 06:51] VITALS: BP 120/80
--- NOTE | 2017-06-23 08:33 | ECHOCARDIOGRAM REPORT ---
DUARTE SCHULZ Age: 57 : 1960 Gender: M Exam Date: 06/22/2017 08:16 Exam Location: [address] Ht (in): 68 Wt (lb): 150 BSA: 1.81 BP: 136 / 80 Ordering Physician: Annie Diop MD Referring Physician: Annie Diop MD Technologist: Adalid Harrison [facility] Room Number: 174-1 Indications: PRESYNCOPE/SYNCOPE Rhythm: Sinus Technical Quality: fair FINDINGS Left Ventricle Normal left ventricular size, wall thickness and systolic function with no obvious regional wall motion abnormalities. Normal left ventricular diastolic filling pattern for age. The ejection fraction is visually estimated at 60%. Right Ventricle The right ventricle is normal in size and function. Right Atrium The right atrium is normal in size. Left Atrium The left atrium is normal in size. The interatrial septum is intact. Mitral Valve The mitral valve is normal in structure and function. There is no mitral regurgitation. Aortic Valve Structurally normal aortic valve without significant sclerosis or stenosis. There is no aortic regurgitation. Tricuspid Valve The tricuspid valve is normal in structure and function. There is no tricuspid regurgitation. Pulmonic Valve Structurally normal pulmonic valve. There is no pulmonic regurgitation. Pericardium Normal pericardium without effusion. No pleural effusion. Great Vessels Normal aortic root dimension. The aortic arch and great vessels are well seen and are normal. CONCLUSIONS 1. Normal EF of 60%. Shawn Garrison M.D. (Electronically Signed) Final Date: 23 June 2017 08:32 MEASUREMENTS (Male / Female) Normal Values 2D ECHO LV Diastolic Diameter PLAX 4.1 cm 4.2 - 5.9 / 3.9 - 5.3 cm LV Systolic Diameter PLAX 2.5 cm 2.1 - 4.0 cm LV Fractional Shortening PLAX 39.0 % 25 - 46 % LV Ejection Fraction 2D Teich 69.9 % IVS Diastolic Thickness 0.9 cm LVPW Diastolic Thickness 0.9 cm LV Relative Wall Thickness 0.4 RV Internal Dim ED PLAX 2.6 cm 1.9 - 3.8 cm LVOT Diameter 1.8 cm Aortic Root Diameter 3.4 cm LA Systolic Diameter LX 2.1 cm 3.0 - 4.0 / 2.7 - 3.8 cm Ascending Aorta Diameter 3.6 cm DOPPLER AV Peak Velocity 112.0 cm/s AV Peak Gradient 5.0 mmHg AV Mean Velocity 72.0 cm/s AV Mean Gradient 2.0 mmHg AV Velocity Time Integral 19.7 cm LVOT Peak Velocity 78.2 cm/s LVOT Peak Gradient 2.4 mmHg LVOT Mean Velocity 41.0 cm/s LVOT Mean Gradient 1.0 mmHg LVOT Velocity Time Integral 14.9 cm LVOT Stroke Volume 37.9 cm AV Area Cont Eq vti 1.9 cm AV Area Cont Eq pk 1.8 cm MV Peak Velocity 89.6 cm/s MV Peak Gradient 3.2 mmHg MV Mean Velocity 49.9 cm/s MV Mean Gradient 1.0 mmHg Mitral E Point Velocity 90.8 cm/s Mitral A Point Velocity 74.0 cm/s Mitral E to A Ratio 1.2 MV PHT Velocity 90.9 cm/s MV Deceleration [place] 246.0 cm/s MV Pressure Half Time 110.9 ms MV Area PHT 2.0 cm MV Deceleration Time 324.0 ms PV Peak Velocity 106.0 cm/s PV Peak Gradient 4.5 mmHg PV Mean Velocity 68.6 cm/s PV Mean Gradient 2.5 mmHg PV Velocity Time Integral 21.8 cm LV E' Lateral Velocity 10.0 cm/s Mitral E to LV E' Lateral Ratio 9.1 LV E' Septal Velocity 9.6 cm/s Mitral E to LV E' Septal Ratio 9.5
--- NOTE | 2017-06-23 08:43 | PN- Housestaff ---
See Addendum Aleta Holguin 06/23/17 0843: Subjective Follow-up For: Per AP problem list Tele-Events Since Last Visit: NSR Subjective: No overnight event. Patient felt improved from use of IV steroids. Still wheezing, however no other complaint. Patient was chatting with his friend at bedside Review of Systems Constitutional: Reports: see HPI. Objective Last 24 Hrs of Vital Signs/I&O Vital Signs Date Time Temp Pulse Resp B/P B/P Pulse O2 O2 Flow FiO2 Mean Ox Delivery Rate 06/23 0825 98 Nasal 6.0L Cannula 06/23 0651 97.9 71 20 120/80 94 Nasal 6.0L Cannula 06/22 2230 98.2 80 22 132/72 7 Nasal Cannula 06/22 2022 Nasal 4.0L Cannula 06/22 1622 93 Nasal 6.0L Cannula 06/22 1520 97.8 70 22 116/54 94 06/22 1520 97.5 75 22 112/60 98 06/22 1035 Nasal 6.0L Cannula 06/22 1034 96 Nasal 6.0L Cannula 06/22 0934 66 120/78 06/22 0934 66 120/78 Intake & Output 06/23 1600 06/23 0800 06/23 0000 Intake Total Output Total Balance Patient 64.864 kg Weight Physical Exam General Appearance: Alert, Oriented X3, Cooperative, No Acute Distress Cardiovascular: Regular Rate Lungs: Normal Air Movement, BL wheezing Abdomen: Soft, No Tenderness Neurological: Normal Gait, Normal Speech, Strength at 5/5 X4 Ext Current Medications: Current Medications Sig/Rebel Start time Last Medication Dose Route Stop Time Status Admin Albuterol Sulfate 3 ML EVERY 4 HRS/AWAKE 06/22 1200 AC 06/23 INH 0825 Albuterol Sulfate 2 PUF Q6P PRN 06/22 1000 AC 06/23 INH 0653 Aspirin Buffered 81 MG DAILY 06/22 1000 AC 06/22 PO 0934 Azithromycin 500 MG DAILY 06/22 1000 AC 06/22 Dextrose/Water 250 ML IV 1124 Budesonide/ 2 PUF BID 06/22 1000 AC 06/22 Formoterol Fumarate INH 2007 Cefuroxime Sodium 500 MG Q12 06/22 2200 AC 06/23 PO 0036 Enoxaparin Sodium 40 MG DAILY 06/22 1000 AC SC Guaifenesin 600 MG Q12 06/22 1000 AC 04/ PO 2008 Ipratropium [place] 2.5 ML EVERY 4 HRS/AWAKE 06/22 1200 AC 06/23 INH 0825 Melatonin 5 MG AT BEDTIME 06/23 0100 AC 06/23 PO 0055 Methylprednisolone 40 MG Q8 06/22 0600 DC 06/22 IV 1232 Metoprolol Succinate 50 MG DAILY 06/23 1000 AC PO Metoprolol Succinate 100 MG DAILY 06/22 1000 DC 06/22 PO 0934 Nicotine 14 MG DAILY 06/22 1000 AC 06/22 TOP 0933 Nicotine 14 MG DAILY 06/22 1000 AC 06/22 TOP 0935 Patient Medication 1 ED ONE ONE 06/22 1515 DC Teaching ED 06/22 1516 Prednisone 50 MG DAILY 06/23 1000 AC PO Sodium Chloride 2 SPRAY Q4P PRN 06/22 0930 AC IRENE Tamsulosin HCl 0.4 MG DAILY 06/22 1000 AC 06/22 PO 0934 Last 24 Hrs of Lab/Fercho Results Last 24 Hrs of Labs/Mics: Laboratory Tests 06/23/17 0644: Anion Gap 7, Estimated GFR > 60, BUN/Creatinine Ratio 41.7 H, CBC w Diff Pending, WBC Pending, RBC Pending, Hgb Pending, Hct Pending, MCV Pending, MCH Pending, MCHC Pending, RDW Pending, Plt Count Pending, MPV Pending Microbiology 06/22 1857 LOWER RESP: Respiratory Culture - COLB 06/22 1857 LOWER RESP: Gram Stain - COLB Assessment/Plan Assessment: Patient is a 57-year-old male with a PMH significant for COPD on 6 L home O2 at baseline, HTN, paroxysmal A. fib not on anticoagulation by patient's choice, CAD with [place] approximately 4 years ago, CVA approximately 4 years ago, who presents complaining of a one-week history of worsening dyspnea, cough and a syncopal episode. We are following the patient on telemetry floor for following problems: Syncope episode: -Probably due to vasovagal syncope -We will rule out any arrhythmias or acute cardiac ischemic event. -Serial EKGs and troponins x 2 had been negative -Cardiac consult appreciated. Reduced B-Rene in half. -Echocardiogram pending -Orthostatic vitals COPD exacerbation: -Possibly secondary to acute bronchitis -Chronic hypercarbic respiratory failure -Patient COPD exacerbation secondary to upper respiratory tract infection -Switched to PO prednisone 50mg qd -TRC nebulization -Mucinex -Supplemental oxygen as needed to keep oxygen saturation above 92% -Switched to Ceftin 500 bid per pulm -Follow sputum and blood cultures -Influenza test negative -Pulmonology consult appreciated Smoking cessation: -Nicotine patch as needed History of hypertension: -Continue home medications History of BPH: -Continue home medications History of A. fib and CAD: -Not on any anticoagulation -Continue home medications DVT prophylaxis: -Mechanical and subcutaneous Lovenox CODE STATUS: DNI Problem List: 1. COPD exacerbation 2. Unresponsive episode Pain Ratin Pain Location: NA Pain Goal: Remain pain free Pain Plan: see AP Tomorrow's Labs & Rationales: CRYSTAL Fowler MD,Jose 06/23/17 1257: Attending MD Review Statement Attending Statement Attending MD Statement: examined this patient, discuss w/resident/PA/RESIDENTIAL RECYCLE DRIVER, agreed w/resident/PA/RESIDENTIAL RECYCLE DRIVER, reviewed EMR data (avail) Attending Assessment/Plan: Patient remains short of breath. He is currently on 6 L of oxygen with 90% saturation. He is afebrile and other vital signs are stable. Chest exam shows overall decreased air entry with expiratory prolongation and wheezing. CBC is within normal limits and his BUN is 25. Echocardiogram shows 60% ejection fraction with normal LV function. Plan Continue Ceftin and prednisone, TRC nebulizer treatment and taper oxygen Out of bed and ambulate as tolerated patient not stable for discharge
[2017-06-23 08:52] LABS: ABSOLUTE BASOPHIL COUNT 0 /CUMM (0.0-0.2); ABSOLUTE EOSINOPHIL COUNT 0.1 /CUMM (0.0-0.7); ABSOLUTE GRANULOCYTE CT 6.2 /CUMM (1.4-6.5); ABSOLUTE LYMPH COUNT 2.5 /CUMM (1.2-3.4); ABSOLUTE MONOCYTE COUNT 1.5 /CUMM (0.10-0.60); BASOPHIL % 0.2 % (0.0-2.0); EOSINOPHIL % 0.7 % (0-5); GRANULOCYTE % 60.6 % (42.2-75.2); HEMATOCRIT 43.6 % (42-52); MEAN CORPUSCULAR HGB 29.8 PG (27.0-31.0); MEAN CORPUSCULAR HGB CONC 33.1 G/DL (33.0-37.0); MEAN CORPUSCULAR VOLUME 90.2 FL (80.0-94.0); PLATELET COUNT 201 /CUMM (130-400); RBC DISTRIBUTION WIDTH 13.7 % (11.5-14.5); RED BLOOD CELL CT 4.84 /CUMM (4.70-6.10); WHITE BLOOD CELL COUNT 10.2 /CUMM (4.8-10.8)
--- NOTE | 2017-06-23 13:40 | PN- Pulmonary ---
Subjective HPI/Critical Care Issues: PT sleeping Did not disturb him No sig wheezing Objective Current Medications: Current Medications Sig/Rebel Start time Last Medication Dose Route Stop Time Status Admin Albuterol Sulfate 3 ML EVERY 4 HRS/AWAKE 06/22 1200 AC 04 INH 0825 Albuterol Sulfate 2 PUF Q6P PRN 04 1000 AC 06/23 INH 0653 Aspirin Buffered 81 MG DAILY 04/ 1000 AC 06/23 PO 1034 Azithromycin 500 MG DAILY 06/22 1000 AC 06/23 Dextrose/Water 250 ML IV 1033 Budesonide/ 2 PUF BID 06/22 1000 AC 06/23 Formoterol Fumarate INH 1033 Cefuroxime Sodium 500 MG Q12H 06/23 1200 AC PO Cefuroxime Sodium 500 MG Q12 06/22 2200 DC 06/23 PO 0036 Enoxaparin Sodium 40 MG DAILY 06/22 1000 AC SC Guaifenesin 600 MG Q12 06/22 1000 AC 06/23 PO 1034 Ipratropium [place] 2.5 ML EVERY 4 HRS/AWAKE 06/22 1200 AC 06/23 INH 0825 Melatonin 5 MG AT BEDTIME 06/23 0100 AC 06/23 PO 0055 Methylprednisolone 40 MG Q8 06/22 0600 DC 06/22 IV 1232 Metoprolol Succinate 50 MG DAILY 06/23 1000 AC 06/23 PO 1034 Metoprolol Succinate 100 MG DAILY 06/22 1000 DC 06/22 PO 0934 Nicotine 14 MG DAILY 06/22 1000 AC 06/22 TOP 0933 Nicotine 14 MG DAILY 06/22 1000 AC 06/23 TOP 1033 Patient Medication 1 ED ONE ONE 06/22 1515 DC Teaching ED 06/22 1516 Prednisone 50 MG DAILY 06/23 1000 AC 06/23 PO 1034 Sodium Chloride 2 SPRAY Q4P PRN 06/22 0930 AC IRENE Tamsulosin HCl 0.4 MG DAILY 06/22 1000 AC 06/23 PO 1034 Vital Signs & I&O Last 24 Hrs of Vitals and I&O: Vital Signs Date Time Temp Pulse Resp B/P B/P Pulse O2 O2 Flow FiO2 Mean Ox Delivery Rate 06/23 1034 120/80 06/23 1034 120/80 06/23 0825 98 Nasal 6.0L Cannula 06/23 0800 94 Nasal 6.0L Cannula 06/23 0651 97.9 71 20 120/80 94 Nasal 6.0L Cannula 06/22 2230 98.2 80 22 132/72 7 Nasal Cannula 06/22 2021 Nasal 4.0L Cannula 06/22 162 93 Nasal 6.0L Cannula 06/22 1520 97.8 70 22 116/54 94 06/22 1520 97.5 75 22 112/60 98 Intake & Output 06/23 1600 06/23 0800 06/23 0000 Intake Total Output Total Balance Patient 143 lb Weight Laboratory Tests 06/23 06/22 06/22 0644 0325 0141 Chemistry Sodium (137 - 145 mmol/L) 139 Potassium (3.5 - 5.1 mmol/L) 4.1 Chloride (98 - 107 mmol/L) 97 L Carbon Dioxide (22 - 30 mmol/L) 36 H Anion Gap (5 - 16) 7 BUN (9 - 20 mg/dL) 25 H Creatinine (0.7 - 1.2 mg/dL) 0.6 L Estimated GFR (>60 ml/min) > 60 BUN/Creatinine Ratio (7 - 25 %) 41.7 H Troponin I (<0.11 ng/ml) < 0.01 Hematology CBC w Diff NO MAN DIFF REQ WBC (4.8 - 10.8 /CUMM) 10.2 RBC (4.70 - 6.10 /CUMM) 4.84 Hgb (14.0 - 18.0 G/DL) 14.4 Hct (42 - 52 %) 43.6 MCV (80.0 - 94.0 FL) 90.2 MCH (27.0 - 31.0 PG) 29.8 MCHC (33.0 - 37.0 G/DL) 33.1 RDW (11.5 - 14.5 %) 13.7 Plt Count (130 - 400 /CUMM) 201 MPV (7.4 - 10.4 FL) 9.0 Gran % (42.2 - 75.2 %) 60.6 Lymphocytes % (20.5 - 51.1 %) 24.1 Monocytes % (1.7 - 9.3 %) 14.4 H Eosinophils % (0 - 5 %) 0.7 Basophils % (0.0 - 2.0 %) 0.2 Absolute Granulocytes (1.4 - 6.5 /CUMM) 6.2 Absolute Lymphocytes (1.2 - 3.4 /CUMM) 2.5 Absolute Monocytes (0.10 - 0.60 /CUMM) 1.5 H Absolute Eosinophils (0.0 - 0.7 /CUMM) 0.1 Absolute Basophils (0.0 - 0.2 /CUMM) 0 Toxicology Urine Opiates Screen (>2000 NG/ML) < 100 Methadone Screen (>300 NG/ML) < 40 Barbiturate Screen (>200 NG/ML) < 60 Ur Phencyclidine Scrn (>25 NG/ML) < 6.00 Amphetamines Screen (>1000 NG/ML) < 100 U Benzodiazepines Scrn (>200 NG/ML) < 85 Urine Cocaine Screen (>300 NG/ML) < 50 Urine Cannabis Screen (>50 NG/ML) > 80.00 H 06/21 2030 Blood Gas pH (7.35 - 7.45 PH) 7.38 pCO2 (35 - 45 TORR) 50 H pO2 (80 - 100 TORR) 174 H HCO3 (21 - 28 MEQ/L) 29 H ABG O2 Sat (Measured) (>96.0 %) 98.0 P-50 (Temp Corrected) N Carboxyhemoglobin (1.5 - 5.0 %) 0.6 L O2 Concentration % 6L Temperature (97.0 - 100.0 FARH) 97.3 O2 Delivery Method NC Chemistry Sodium (137 - 145 mmol/L) 139 Potassium (3.5 - 5.1 mmol/L) 4.7 Chloride (98 - 107 mmol/L) 93 L Carbon Dioxide (22 - 30 mmol/L) 35 H Anion Gap (5 - 16) 11 BUN (9 - 20 mg/dL) 20 Creatinine (0.7 - 1.2 mg/dL) 0.7 Estimated GFR (>60 ml/min) > 60 BUN/Creatinine Ratio (7 - 25 %) 28.6 H Glucose (65 - 99 mg/dL) 114 H Calcium (8.4 - 10.2 mg/dL) 9.6 Magnesium (1.6 - 2.3 mg/dL) 2.1 Total Bilirubin (0.2 - 1.3 mg/dL) 1.0 AST (17 - 59 U/L) 68 H ALT (21 - 72 U/L) 53 Alkaline Phosphatase (< 127 U/L) 55 Troponin I (<0.11 ng/ml) < 0.01 Gbd-V-Hvjhuxdrcul Pept (<125 pg/mL) 173 H Total Protein (6.3 - 8.2 g/dL) 7.5 Albumin (3.5 - 5.0 g/dL) 4.4 Globulin (1.9 - 4.2 gm/dL) 3.1 Albumin/Globulin Ratio (1.1 - 2.2 %) 1.4 Hematology CBC w Diff NO MAN DIFF REQ WBC (4.8 - 10.8 /CUMM) 9.1 RBC (4.70 - 6.10 /CUMM) 5.20 Hgb (14.0 - 18.0 G/DL) 15.6 Hct (42 - 52 %) 46.7 MCV (80.0 - 94.0 FL) 89.8 MCH (27.0 - 31.0 PG) 30.0 MCHC (33.0 - 37.0 G/DL) 33.4 RDW (11.5 - 14.5 %) 13.7 Plt Count (130 - 400 /CUMM) 207 MPV (7.4 - 10.4 FL) 8.8 Gran % (42.2 - 75.2 %) 75.4 H Lymphocytes % (20.5 - 51.1 %) 13.0 L Monocytes % (1.7 - 9.3 %) 11.5 H Eosinophils % (0 - 5 %) 0 Basophils % (0.0 - 2.0 %) 0.1 Absolute Granulocytes (1.4 - 6.5 /CUMM) 6.9 H Absolute Lymphocytes (1.2 - 3.4 /CUMM) 1.2 Absolute Monocytes (0.10 - 0.60 /CUMM) 1.0 H Absolute Eosinophils (0.0 - 0.7 /CUMM) 0 Absolute Basophils (0.0 - 0.2 /CUMM) 0 Miscellaneous Phlebotomy Draw Site RIGHT RADIAL Toxicology Acetaminophen (10.0 - 30.0 ug/mL) < 10.0 L Microbiology Date/Time Procedure - Status Source Growth 06/22 1857 Respiratory Culture - COLB LOWER RESP 06/22 1857 Gram Stain - COLB LOWER RESP 06/22 812 Legionella Antigen - COLB URINE ROUT 06/22 812 Streptococcus pneumoniae Antigen (M - COLB URINE ROUT 06/22 149 Respiratory Culture - CAN LOWER RESP Cancelled: NUMBER OF SQUAMOUS CELLS INDICATES POOR QUALITY SPECIMEN 06/22 149 Gram Stain - CAN LOWER RESP Cancelled: NUMBER OF SQUAMOUS CELLS INDICATES POOR QUALITY SPECIMEN 06/22 0150 Blood Culture - RES BLOOD 06/22 0130 Influenza Virus A & B Rapid Smear - RECD NASOPHARYN 06/21 2029 Blood Culture - RES BLOOD Impression/Plan Impression/Plan Impression/Plan: General Appearance sleeping Skin Temp/Moisture Exam: Warm/Dry Sepsis Skin Exam (color): Normal for Ethnicity HEENT Atraumatic, PERRLA, EOMI Cardiovascular Regular Rate, Normal S1, Normal S2 Lungs diffuse expiratory wheezing, with prolonged expiratory phase, mild respiratory distress, using accessory muscles Abdomen Normal Bowel Sounds, Soft, No Tenderness Neurological Normal Speech, Normal Tone, Sensation Intact Extremities No Clubbing, No Cyanosis, No Edema IMPRESSION Patient is a 57-year-old male with a PMH significant for COPD on 6 L home O2 at baseline, HTN, paroxysmal A. fib not on anticoagulation by patient's choice, CAD with [place] approximately 4 years ago, CVA approximately 4 years ago, who presents complaining of a one-week history of worsening dyspnea, cough and a syncopal episode. ISSUES Acute COPDE with chronic hypoxic and hypercarbic resp failure resolved Syncope Sig baseline hypoxia on 6 litres Previous stroke, afib, heart disease, smoking, Prior hypoglycemic episode REC Cont nebs atc Change to po prednisone 50 mg Keep sat at 90 and reduce oxygen if needed Change abx to ceftin 500 bid can dc azithro sputum culture check sugars Cardiac monitoring Will follow Pt is dni
[2017-06-23 14:24] VITALS: BP 118/74
[2017-06-23 22:06] VITALS: BP 122/70
--- NOTE | 2017-06-24 05:53 | PN- Housestaff ---
[facility] Subjective Follow-up For: COPD exacerbation possibly secondary to acute bronchitis Syncope Tele-Events Since Last Visit: Sinus rhythm with heart rate 6064 Subjective: No overnight events. Patient remained afebrile overnight. Is seen and examined this morning. He reported stuffiness of nose and right foot. He was using 5 L of oxygen and maintaining saturation 97%. Patient denied any cough, sputum, chest pain, palpitation, dizziness, abdominal pain and dysuria. Review of Systems Constitutional: Denies: chills, fever. EENTM: Reports: no symptoms. Cardiovascular: Denies: chest pain, palpitations. Respiratory: Denies: cough, short of breath, sputum production. Gastrointestinal: Reports: no symptoms. Genitourinary: Reports: no symptoms. Musculoskeletal: Reports: no symptoms. Neurological/Psychological: Reports: no symptoms. Objective Last 24 Hrs of Vital Signs/I&O Vital Signs Date Time Temp Pulse Resp B/P B/P Pulse O2 O2 Flow FiO2 Mean Ox Delivery Rate 06/24 0704 98.3 71 24 110/70 97 Nasal 6.0L Cannula 06/24 0000 Nasal 6.0L Cannula 06/23 2206 98.0 90 24 122/70 95 Nasal 6.0L Cannula 06/23 1959 95 Nasal 7.0L Cannula 06/23 1615 93 Nasal 10L Cannula 06/23 1600 Nasal 6.0L Cannula 06/23 1424 97.8 78 20 118/74 98 Room Air 6.0L 06/23 1034 120/80 04/ 1034 120/80 06/23 0825 98 Nasal 6.0L Cannula 06/23 0800 94 Nasal 6.0L Cannula Intake & Output 06/24 0800 06/24 0000 06/23 1600 Intake Total 110 520 Output Total Balance 110 520 Intake, IV 10 Intake, Oral 100 520 Patient 142 lb Weight Weight Bed scale Measurement Method Physical Exam General Appearance: Alert, Oriented X3, Cooperative Skin Temp/Moisture Exam: Warm/Dry Sepsis Skin Exam (color): Normal for Ethnicity HEENT: Atraumatic, PERRLA, EOMI Neck: Supple Cardiovascular: Normal S1, Normal S2 Lungs: Clear to Auscultation Abdomen: Soft, No Tenderness Neurological: Normal Speech, Strength at 5/5 X4 Ext, Normal Tone, Sensation Intact Extremities: No Edema Assessment/Plan Assessment: Patient is a 57-year-old male with a PMH significant for COPD on 6 L home O2 at baseline, HTN, paroxysmal A. fib not on anticoagulation by patient's choice, CAD with [place] approximately 4 years ago, CVA approximately 4 years ago, who presents complaining of a one-week history of worsening dyspnea, cough and a syncopal episode. We are following the patient on telemetry floor for following problems: Syncope episode: -Probably due to vasovagal syncope -We will rule out any arrhythmias or acute cardiac ischemic event. -Serial EKGs and troponins x 2 had been negative -Cardiac consult appreciated. Reduced B-Rene in half. -Echocardiogram pending -Orthostatic vitals COPD exacerbation: -Possibly secondary to acute bronchitis -Chronic hypercarbic respiratory failure -Patient COPD exacerbation secondary to upper respiratory tract infection -Switched to PO prednisone 50mg daily. -TRC nebulization -Mucinex -Supplemental oxygen as needed to keep oxygen saturation above 92% -Switched to Ceftin 500 bid per pulm -Follow sputum and blood cultures -Influenza test negative -Pulmonology consult appreciated Smoking cessation: -Nicotine patch as needed History of hypertension: -Continue home medications History of BPH: -Continue home medications History of A. fib and CAD: -Not on any anticoagulation -Continue home medications DVT prophylaxis: -Mechanical and subcutaneous Lovenox CODE STATUS: DNI Problem List: 1. COPD exacerbation 2. Syncope Pain Ratin Pain Location: none Pain Goal: Remain pain free Pain Plan: pain pathway Tomorrow's Labs & Rationales: none Janeth DUARTE,Jose 06/24/17 1137: Attending MD Review Statement Attending Statement Attending Assessment/Plan: Attending MD Statement: examined this patient, discuss w/resident/PA/DENTURE CONTOUR WIRE SPECIALIST, agreed w/resident/PA/DENTURE CONTOUR WIRE SPECIALIST, reviewed EMR data (avail) Attending Assessment/Plan: Patient this morning reports a decrease difficulty breathing and the feels much better. He has been able to ambulate to bathroom with less difficulty breathing. He is currently on 3 L of oxygen with 96% saturation. He is afebrile and other vital signs are stable. Chest exam shows overall decreased air entry with expiratory prolongation and minimal wheezing. No new labs were done today. Echocardiogram shows 60% ejection fraction with normal LV function. Assessment COPD exacerbation -improving Plan Continue Ceftin and prednisone, TRC nebulizer treatment and taper oxygen Out of bed and ambulate as tolerated If clear by pulmonology patient can be discharged. He may need oxygen to go home with.
[2017-06-24] MEDS ORDERED: TOPROL XL50 M1 PO (05:54)
[2017-06-24 07:04] VITALS: BP 110/70
--- NOTE | 2017-06-24 11:23 | Patient Discharge Instructions ---
Discharge Instructions General Discharge Information You were seen/treated for: Vasovagal syncope COPD exacerbation Watch for these problems: Chest pain, short of breath, dizziness, lightheadedness, nausea, vomiting, wheezing, cough, sputum and chills. -If you experience any of these symptoms please call your primary care physician or come to ED Special Instructions: Follow-up with your primary care physician in one week. Follow-up with your fiberglass tube molder in 1 week Diet Recommended Diet: Regular Activity Activity Self Limited: Yes Acute Coronary Syndrome Inclusion Criteria At DC or during hospital stay patient has or had the following: ACS DIAGNOSIS No Discharge Core Measures Meds if any: Prescribed or Continued at Discharge Meds if any: NOT Prescribed or Continued at Discharge Congestive Heart Failure Inclusion Criteria At DC or during hospital stay patient has or had the following: CHF DIAGNOSIS No Discharge Core Measures Meds if any: Prescribed or Continued at Discharge Meds if any: NOT Prescribed or Continued at Discharge Cerebrovascular accident Inclusion Criteria At DC or during hospital stay patient has or had the following: CVA/TIA Diagnosis No Discharge Core Measures Meds if any: Prescribed or Continued at Discharge Meds if any: NOT Prescribed or Continued at Discharge Venous thromboembolism Inclusion Criteria VTE Diagnosis No VTE Type NONE VTE Confirmed by (Test) NONE Discharge Core Measures - Per Current guidelines, there needs to be overlap - treatment for the first 5 days of Warfarin therapy. - If discharged on Warfarin prior to 5 days of - overlap therapy, the patient will need to be - assessed for post discharge needs including - *Post discharge parental anticoagulation - *Warfarin and/or parental anticoagulation education - *Follow up date to check INR post discharge At least 5 days overlap therapy as Inpatient No Meds if any: Prescribed or Continued at Discharge Note: Overlap Therapy is Warfarin and Anticoagulant Meds if any: NOT Prescribed or Continued at Discharge
--- NOTE | 2017-06-24 11:47 | PN- Pulmonary ---
Subjective HPI/Critical Care Issues: No overnight events. Patient remained afebrile overnight. Is seen and examined this morning. He reported stuffiness of nose and right foot. He was using 5 L of oxygen and maintaining saturation 97%. Patient denied any cough, sputum, chest pain, palpitation, dizziness, abdominal pain and dysuria. Had a mild wheezing episode this am Review of Systems Constitutional: Denies: chills, fever. EENTM: Reports: no symptoms. Cardiovascular: Denies: chest pain, palpitations. Respiratory: Denies: cough, short of breath, sputum production. Gastrointestinal: Reports: no symptoms. Genitourinary: Reports: no symptoms. Musculoskeletal: Reports: no symptoms. Neurological/Psychological: Reports: no symptoms. Objective Current Medications: Current Medications Sig/Rebel Start time Last Medication Dose Route Stop Time Status Admin Albuterol Sulfate 3 ML EVERY 4 HRS/AWAKE 06/22 1200 AC 06/24 INH 1000 Albuterol Sulfate 2 PUF Q6P PRN 06/22 1000 AC 06/23 INH 1351 Alprazolam 0.25 MG Q12 PRN 06/23 1830 AC 06/24 PO 06/30 1829 1025 Aspirin Buffered 81 MG DAILY 06/22 1000 AC 06/24 PO 0851 Azithromycin 500 MG DAILY 06/22 1000 DC 06/23 Dextrose/Water 250 ML IV 1033 Budesonide/ 2 PUF BID 06/22 1000 AC 06/24 Formoterol Fumarate INH 0852 Cefuroxime Sodium 500 MG Q12H 06/23 1200 AC 06/24 PO 0851 Enoxaparin Sodium 40 MG DAILY 06/22 1000 AC SC Guaifenesin 600 MG Q12 06/22 1000 AC 06/24 PO 0852 Ipratropium [place] 2.5 ML EVERY 4 HRS/AWAKE 06/22 1200 AC 06/24 INH 1000 Melatonin 5 MG AT BEDTIME 06/23 0100 AC 06/23 PO 2121 Metoprolol Succinate 50 MG DAILY 06/23 1000 AC 06/24 PO 0851 Nicotine 14 MG DAILY 06/22 1000 AC 06/22 TOP 0933 Nicotine 14 MG DAILY 06/22 1000 AC 06/24 TOP 0851 Prednisone 50 MG DAILY 06/23 1000 AC 06/24 PO 1025 Sodium Chloride 2 SPRAY Q4P PRN 06/22 0930 AC 06/23 IRENE 2042 Tamsulosin HCl 0.4 MG DAILY 04/06 1000 AC 06/24 PO 0852 Vital Signs & I&O Last 24 Hrs of Vitals and I&O: Vital Signs Date Time Temp Pulse Resp B/P B/P Pulse O2 O2 Flow FiO2 Mean Ox Delivery Rate 06/24 1017 96 Nasal 3.0L Cannula 06/24 0852 110/70 06/24 0851 110/70 06/24 0800 93 Nasal 5.0L Cannula 06/24 0704 98.3 71 24 110/70 97 Nasal 6.0L Cannula 06/24 0000 Nasal 6.0L Cannula 06/23 2206 98.0 90 24 122/70 95 Nasal 6.0L Cannula 06/23 1959 95 Nasal 7.0L Cannula 06/23 1615 93 Nasal 10L Cannula 06/23 1600 Nasal 6.0L Cannula 06/23 1424 97.8 78 20 118/74 98 Room Air 6.0L Intake & Output 06/24 1600 06/24 0800 06/24 0000 Intake Total 110 520 Output Total Balance 110 520 Intake, IV 10 Intake, Oral 100 520 Patient 142 lb Weight Weight Bed scale Measurement Method Impression/Plan Impression/Plan Impression/Plan: General Appearance aao x 3 Skin Temp/Moisture Exam: Warm/Dry Sepsis Skin Exam (color): Normal for Ethnicity HEENT Atraumatic, PERRLA, EOMI Cardiovascular Regular Rate, Normal S1, Normal S2 Lungs diffuse expiratory wheezing, with prolonged expiratory phase, mild respiratory distress, using accessory muscles this am Abdomen Normal Bowel Sounds, Soft, No Tenderness Neurological Normal Speech, Normal Tone, Sensation Intact Extremities No Clubbing, No Cyanosis, No Edema IMPRESSION Patient is a 57-year-old male with a PMH significant for COPD on 6 L home O2 at baseline, HTN, paroxysmal A. fib not on anticoagulation by patient's choice, CAD with [place] approximately 4 years ago, CVA approximately 4 years ago, who presents complaining of a one-week history of worsening dyspnea, cough and a syncopal episode. ISSUES Acute COPDE with chronic hypoxic and hypercarbic resp failure Resolved Syncope Sig baseline hypoxia on 6 litres- needs to reduce this for oxygen sat of 92 Previous stroke, afib, heart disease, smoking, Prior hypoglycemic episode REC Cont nebs atc duoneb Po prednisone 50 mg Keep sat at 90 and reduce oxygen if needed Ceftin 500 bid can dc azithro check sugars Cardiac monitoring Will follow Pt is dni
[2017-06-24 13:45] VITALS: BP 98/50
[2017-06-24 22:01] VITALS: BP 130/80
--- NOTE | 2017-06-25 06:57 | PN- Housestaff ---
[facility]657: Subjective Follow-up For: COPD exacerbation possibly secondary to acute bronchitis (improving) Syncope (resolved) Tele-Events Since Last Visit: Patient remained in sinus rhythm with heart rate 60- 79 Subjective: No overnight events. Patient remained afebrile. seen and examined this morning. Patient reported having chills. Patient is using 5 L of oxygen maintaining saturation 95%. He denied any chest pain palpitation, syncope, fever, abdominal pain and dysuria. Review of Systems Constitutional: Reports: chills. EENTM: Reports: no symptoms. Cardiovascular: Denies: chest pain, palpitations. Respiratory: Denies: cough, short of breath, sputum production. Gastrointestinal: Reports: no symptoms. Genitourinary: Reports: no symptoms. Neurological/Psychological: Reports: no symptoms. Objective Last 24 Hrs of Vital Signs/I&O Vital Signs Date Time Temp Pulse Resp B/P B/P Pulse O2 O2 Flow FiO2 Mean Ox Delivery Rate 06/25 0701 98.2 68 16 128/70 92 Nasal 4.0L Cannula 06/25 0000 Nasal 5.0L Cannula 06/24 2201 99.3 93 20 130/80 95 Nasal 5.0L Cannula 06/24 1800 96 Nasal 5.0L Cannula 06/24 1600 Nasal 5.0L Cannula 06/24 1345 98.0 74 20 98/50 95 Nasal Cannula 06/24 1017 96 Nasal 3.0L Cannula 06/24 0852 110/70 04/08 0851 110/70 /08 0800 93 Nasal 5.0L Cannula Intake & Output 06/25 0800 06/25 0000 06/24 1600 Intake Total 110 480 Output Total Balance 110 480 Intake, IV 10 Intake, Oral 100 480 Patient 143 lb Weight Weight Bed scale Measurement Method Physical Exam General Appearance: Alert, Oriented X3, Cooperative Skin: No Rashes Skin Temp/Moisture Exam: Warm/Dry Sepsis Skin Exam (color): Normal for Ethnicity HEENT: Atraumatic, PERRLA, EOMI Neck: Supple Cardiovascular: Normal S1, Normal S2 Lungs: Clear to Auscultation Abdomen: Soft, No Tenderness Neurological: Normal Speech, Strength at 5/5 X4 Ext, Normal Tone Extremities: No Edema Assessment/Plan Assessment: 57-year-old male with a PMH significant for COPD on 6 L home O2 at baseline, HTN , paroxysmal A. fib not on anticoagulation by patient's choice, CAD with [place] approximately 4 years ago, CVA approximately 4 years ago, who presents complaining of a one-week history of worsening dyspnea, cough and a syncopal episode. We are following the patient on telemetry floor for following problems: Syncope episode: (resolved) -Probably due to vasovagal syncope -We will rule out any arrhythmias or acute cardiac ischemic event. -Serial EKGs and troponins x 2 had been negative -Reduced B-Rene in half. -Echocardiogram showed ejection fraction 60% COPD exacerbation: -Possibly secondary to acute bronchitis -Chronic hypercarbic respiratory failure -Switched to PO prednisone 50mg daily. -TRC nebulization -Mucinex -Supplemental oxygen as needed to keep oxygen saturation above 92% -Switched to Ceftin 500 bid per pulm -Influenza test negative -Pulmonology consult appreciated -Patient has chronic hypercarbic respiratory failure if his pco2 is more than 50 we will keep him on Bipap at night time. Smoking cessation: -Nicotine patch as needed History of hypertension: -Metoprolol dose was reduced. History of BPH: -Continue home medications History of A. fib and CAD: -Not on any anticoagulation -Continue home medications DVT prophylaxis: -Mechanical and subcutaneous Lovenox CODE STATUS: DNI Problem List: 1. COPD exacerbation 2. Syncope Pain Ratin Pain Location: none Pain Goal: Remain pain free Pain Plan: pain pathway Tomorrow's Labs & Rationales: none Janeth DUARTE,Jose 06/25/17 1121: Attending MD Review Statement Attending Statement Attending Assessment/Plan: Attending MD Statement: examined this patient, discuss w/resident/PA/ENRICHMENT DIRECTOR, agreed w/resident/PA/ENRICHMENT DIRECTOR, reviewed EMR data (avail) Attending Assessment/Plan: Patient this morning reports a epigastric increasing difficulty breathing while he was in the bathroom. He was not able to ambulate and come back to his bed and had to call for help. He is currently on 5 L of oxygen with 94% saturation. He is afebrile and other vital signs are stable. Chest exam shows overall decreased air entry with expiratory prolongation and minimal wheezing. No new labs were done today. Echocardiogram shows 60% ejection fraction with normal LV function. Assessment COPD exacerbation -improving Severe hypoxia Dyspnea on exertion Plan Continue Ceftin and prednisone, TRC nebulizer treatment and taper oxygen Out of bed and ambulate as tolerated Patient not stable for discharge given the acute episode of difficulty breathing this morning
[2017-06-25 07:01] VITALS: BP 128/70
[2017-06-25] MEDS ORDERED: CEFUROXIME250 M1 PO (10:17)
[2017-06-25] MEDS ORDERED: PREDNISONE10 M2 PO (10:39)
--- NOTE | 2017-06-25 11:26 | Discharge Summary ---
Visit Information Visit Dates Admission Date: 06/21/17 Discharge Date: 06/26/17 Hospital Course Course Attending Physician: Favio Juarez MD Primary Care Physician: Unknown Hospital Course: 57-year-old male with a PMH significant for COPD on 6 L home O2 at baseline, HTN , paroxysmal A. fib not on anticoagulation by patient's choice, CAD with [place] approximately 4 years ago, CVA approximately 4 years ago, who presents complaining of a one-week history of worsening dyspnea, cough and a syncopal episode. ED course: Vitals: Temperature 97.3, pulse 88, respiratory rate 24, blood pressure 151/110, oxygen saturation 94% on 6 L of oxygen Labs: WBC count 9.1, hemoglobin 15.6, hematocrit 46.7, platelet count 207, sodium 139, potassium 4.7, BUN 20, creatinine 0.7, BUN/creatinine ratio 28.6, glucose 114, AST 68, ALT 53, troponin less than 0.01, proBNP 173 Syncope episode: Patient presented with one episode of syncope probably due to vasovagal syncopal. Patient was monitored on telemetry floor to rule out any arrhythmias or ischemic cardiac injury. Troponins are EKG remained negative. Cardiology consult was placed and recommendations were followed. Echocardiogram was done that showed ejection fraction 60%. Cardiology recommended outpatient stress test. Patient was instructed to follow his digital forensic examiner at [place] for further recommendations. COPD exacerbation: Patient had COPD exacerbation probably due to acute bronchitis. Patient had a history of chronic hypercarbic respiratory failure and he was on home oxygen 6 L. Patient was given 5 L of oxygen in hospital and he was maintaining saturation above 92%. His flu test was negative. Pulmonology consult was obtained and recommendations were followed. Patient was given azithromycin initially and later on it was changed to Ceftin. He was also given IV Solu- Medrol that was later on changed to by mouth. Discharge patient was given oral steroids with slow taper 5 mg tapering every day to complete the course in 10 days. Patient was also instructed to take azithromycin and Sunday after completing the course of Ceftin to prevent his COPD exacerbation. Patient was also instructed to use 2 units of oxygen at rest and during ambulation he can use 5 or 6 to maintain his saturation above 90%. During hospital stay ABGs were done and is PCO2 was 45 that's why BiPAP was not started at nighttime. Patient was instructed to follow his social worker school at [place] after the discharge. Smoking cessation: Patient was counseled to stop smoking to prevent hospitalization due to COPD exacerbation. Patient was given nicotine patch. History of hypertension: His metoprolol was decreased to 25 mg daily from 100 mg daily considering his COPD. As it can cause bronchospasm. Rest of his home medications were continued. History of BPH: Continued home medications. H/O anxiety: Given xanax 0.25mg PRN. Xanax was continued after the discharge as patient was requesting for anxiety. History of A. fib and CAD: Patient was not on anticoagulation. Aspirin was continued. DVT prophylaxis: Mechanical and subcutaneous Lovenox CODE STATUS: DNI Allergies: Coded Allergies: NO KNOWN ALLERGIES (06/05/13) Pertinent Lab Results: Chest x-ray on 06/21/17: IMPRESSION: Lung hyperinflation. No consolidations. Echocardiogram on 06/22/2017: CONCLUSIONS 1. Normal EF of 60%. WBC count 10.0, hemoglobin 14.4, hematocrit 43.6, platelet count 201, sodium 139 , potassium 4.1, BUN 25, creatinine 0.6, BUNs/creatinine ratio 41.7 Disposition Summary Disposition Principal Diagnosis: COPD exacerbation due to acute bronchitis Vasovagal syncope Additional Diagnosis: Chronic hypercarbic respiratory failure History of hypertension History of BPH History of anxiety History of A. fib and CAD Discharge Disposition: home health services Discharge Instructions General Discharge Information Code Status: Do Not Intubate Patient's Diet: Regular diet Patient's Activity: Self-limited Follow-Up Instructions/Appts: Follow-up with your primary care physician in one week. Follow-up with your social worker school in 1 week. Follow up with your digital forensic examiner at [place] and discuss about cardiac stress test. Smoking cessation Medications at Discharge Discharge Medications: Stop taking the following medications: Metoprolol Succinate (Metoprolol Succinate) 100 MG TAB.ER.24H ORAL DAILY Continue taking these medications: Nitroglycerin (Nitroglycerin) 0.4 MG TAB.SUBL 1 Tablet SUBLINGUAL As Directed as needed for CHEST PAIN Instructions: 1st sign of attack; may repeat every 5 minutes until relief; if pain persists after 3 tablets in 15 minutes, prompt medical att Comments: NOT GIVEN Albuterol Sulfate (Proair Hfa) 90 MCG HFA.AER.AD 2 Puff Inhale through mouth as needed for COPD Comments: Last Taken:06/25/17 Time:1309 Budesonide/Formoterol Fumarate (Symbicort 160-4.5 Mcg Inhaler) 160 MCG-4.5 MCG/ ACTUATION HFA.AER.AD 2 Puff Inhale through mouth TWICE DAILY Comments: Last Taken:06/26/17 Time:0835 Albuterol Sulfate (Albuterol Sulfate) 2.5 MG/3 ML (0.083 %) VIAL.NEB 1 Vial Inhale Solution as needed for COPD Comments: Last Taken:06/26/17 Time:12PM Tamsulosin HCl (Flomax) 0.4 MG CAP.ER.24H 1 Capsule ORAL DAILY Comments: Last Taken:06/26/17 Time:0835 Acetaminophen (Acetaminophen) 500 MG TABLET 4 Tablet ORAL 5XDAILY as needed for PAIN Comments: NOT GIVEN Aspirin (Ecotrin*) 81 MG TABLET.DR 1 Tablet ORAL DAILY Comments: Last Taken:06/26/17 Time:0836 Ibuprofen (Advil) 200 MG CAPSULE 1-2 Tablet ORAL as needed for PAIN/INFLAMMATION Comments: NOT GIVEN Start taking the following new medications: Prednisone (Prednisone) 5 MG TABLET 0 ORAL DAILY Qty = 55 No Refills Instructions: ..On Take 06/27 50 MG 06/28 45 MG 06/29 40 MG 06/30 35 MG 15 30 MG 07/02 25 MG 07/03 20 MG 07/04 15 MG 07/05 10 MG 07/06 05 MG Then Stop Comments: Last Taken:06/26/17 Time:0835 Alprazolam (Xanax) 0.25 MG TABLET 1 Tablet ORAL EVERY 12 HOURS as needed for ANXIETY Qty = 15 No Refills Instructions: .. Comments: Last Taken:06/26/17 Time:0835 Metoprolol Succ XL (Toprol XL) 25 MG TAB 1 Tablet ORAL DAILY Qty = 30 No Refills Instructions: ... Comments: Last Taken:06/26/17 Time:0825 Azithromycin (Azithromycin) 250 MG TABLET 1 Tablet ORAL SUNDAY, SUNDAY AND SUNDAY Qty = 30 No Refills Instructions: Start after completing Cefuroxime course.... Comments: NOT GIVEN Cefuroxime Axetil (Cefuroxime) 250 MG TABLET 2 Tablet ORAL Q12H Qty = 12 No Refills Instructions: ... Comments: Last Taken:06/26/17 Time:12PM Copies To: Larry DUARTE,Favio
--- NOTE | 2017-06-25 13:51 | PN- Pulmonary ---
Subjective HPI/Critical Care Issues: No overnight events. Patient remained afebrile. seen and examined this morning. Patient reported having chills. Patient is using 5 L of oxygen maintaining saturation 95%. He denied any chest pain palpitation, syncope, fever, abdominal pain and dysuria. Review of Systems Constitutional: Reports: chills. EENTM: Reports: no symptoms. Cardiovascular: Denies: chest pain, palpitations. Respiratory: Denies: cough, short of breath, sputum production. Gastrointestinal: Reports: no symptoms. Genitourinary: Reports: no symptoms. Neurological/Psychological: Reports: no symptoms. Objective Current Medications: Current Medications Sig/Rebel Start time Last Medication Dose Route Stop Time Status Admin Albuterol Sulfate 3 ML EVERY 4 HRS/AWAKE 06/22 1200 AC 06/25 INH 1153 Albuterol Sulfate 2 PUF Q6P PRN 06/22 1000 AC 06/25 INH 1309 Alprazolam 0.25 MG Q12 PRN 06/23 1830 AC 06/24 PO 06/30 1829 2233 Aspirin Buffered 81 MG DAILY 06/22 1000 AC 06/25 PO 0757 Budesonide/ 2 PUF BID 06/22 1000 AC 06/25 Formoterol Fumarate INH 0757 Cefuroxime Sodium 500 MG Q12H 06/23 1200 AC 06/25 PO 1308 Enoxaparin Sodium 40 MG DAILY 06/22 1000 AC SC Guaifenesin 600 MG Q12 06/22 1000 AC 06/25 PO 0757 Ipratropium [place] 2.5 ML EVERY 4 HRS/AWAKE 06/22 1200 AC 06/25 INH 1153 Melatonin 5 MG AT BEDTIME 06/23 0100 AC 06/24 PO 2136 Metoprolol Succinate 50 MG DAILY 06/23 1000 AC 06/25 PO 0757 Nicotine 14 MG DAILY 06/22 1000 AC 06/25 TOP 0756 Nicotine 14 MG DAILY 06/22 1000 AC 06/24 TOP 0851 Prednisone 50 MG DAILY 06/23 1000 AC 06/25 PO 0756 Sodium Chloride 2 SPRAY Q4P PRN 06/22 0930 AC 06/24 IRENE 2002 Tamsulosin HCl 0.4 MG DAILY 06/22 1000 AC 06/25 PO 0757 Vital Signs & I&O Last 24 Hrs of Vitals and I&O: Vital Signs Date Time Temp Pulse Resp B/P B/P Pulse O2 O2 Flow FiO2 Mean Ox Delivery Rate 04/09 0817 94 Nasal 5.0L Cannula 06/25 08 94 Nasal 5.0L Cannula 06/25 0757 68 128/78 06/25 0757 68 128/78 06/25 0701 98.2 68 16 128/70 92 Nasal 4.0L Cannula 06/25 0000 Nasal 5.0L Cannula 06/24 2201 99.3 93 20 130/80 95 Nasal 5.0L Cannula 06/24 1800 96 Nasal 5.0L Cannula 06/24 1600 Nasal 5.0L Cannula Intake & Output 06/25 1600 06/25 0806/25 0000 Intake Total 110 480 Output Total Balance 110 480 Intake, IV 10 Intake, Oral 100 480 Patient 143 lb Weight Weight Bed scale Measurement Method Laboratory Tests 06/23 190 Chemistry Troponin I (<0.11 ng/ml) < 0.01 Microbiology Date/Time Procedure - Status Source Growth 06/23 1799 Respiratory Culture - CAN LOWER RESP Cancelled: POOR QUALITY SPECIMEN, RECOLLECT REQUESTED AT 2003 ([employer] ) 06/23 1800 Gram Stain - CAN LOWER RESP Cancelled: POOR QUALITY SPECIMEN, RECOLLECT REQUESTED AT 2003 ([employer] ) 06/23 135 Legionella Antigen - COMP URINE ROUT 06/23 135 Streptococcus pneumoniae Antigen (M - COMP URINE ROUT 06/22 185 Respiratory Culture - CAN LOWER RESP Cancelled: NO SPUTUM COLLECTED 06/22 1857 Gram Stain - CAN LOWER RESP Cancelled: NO SPUTUM COLLECTED Impression/Plan Impression/Plan Impression/Plan: General Appearance aao x 3 Skin Temp/Moisture Exam: Warm/Dry Sepsis Skin Exam (color): Normal for Ethnicity HEENT Atraumatic, PERRLA, EOMI Cardiovascular Regular Rate, Normal S1, Normal S2 Lungs diffuse expiratory wheezing, with prolonged expiratory phase, mild respiratory distress, using accessory muscles this am Abdomen Normal Bowel Sounds, Soft, No Tenderness Neurological Normal Speech, Normal Tone, Sensation Intact Extremities No Clubbing, No Cyanosis, No Edema IMPRESSION Patient is a 57-year-old male with a PMH significant for COPD on 6 L home O2 at baseline, HTN, paroxysmal A. fib not on anticoagulation by patient's choice, CAD with [place] approximately 4 years ago, CVA approximately 4 years ago, who presents complaining of a one-week history of worsening dyspnea, cough and a syncopal episode. ISSUES Acute COPDE with chronic hypoxic and hypercarbic resp failure with episodic wheezing Resolved Syncope Sig baseline hypoxia on 5 litres- needs to reduce this for oxygen sat of 92 Previous stroke, afib, heart disease, smoking, Prior hypoglycemic episode REC Cont nebs atc duoneb Po prednisone 50 mg REduce betablocker to 25 mg as it could be causing wheezing ABG this pm and if pco2 is more than 50 than start BIPAP 12/6 at hs for chronic resp failure pt will qualify for bedtime bipap if pco2 is high Keep sat at 90 and reduce oxygen if needed Ceftin 500 bid can dc azithro check sugars Cardiac monitoring Will follow Pt is dni
[2017-06-25 14:00] VITALS: BP 108/64
--- NOTE | 2017-06-25 20:38 | PN- Cardiology ---
Subjective Subjective: * This patient continues to have shortness of breath although it is improved compared to admission. No chest pain. Objective Vital Signs and I&Os Vital Signs Date Time Temp Pulse Resp B/P B/P Pulse O2 O2 Flow FiO2 Mean Ox Delivery Rate 06/25 1627 96 Nasal 5.0L Cannula 06/25 1400 98.0 87 18 108/64 97 Nasal 5.0L Cannula 06/25 0817 94 Nasal 5.0L Cannula 06/25 0800 94 Nasal 5.0L Cannula 06/25 0757 68 128/78 06/25 0757 68 128/78 06/25 0701 98.2 68 16 128/70 92 Nasal 4.0L Cannula 06/25 0000 Nasal 5.0L Cannula 06/24 2201 99.3 93 20 130/80 95 Nasal 5.0L Cannula Intake & Output 06/25 1600 06/25 0800 06/25 0000 06/24 1600 06/24 0806/24 0000 Intake Total 410 110 480 110 520 Output Total Balance 410 110 480 110 520 Intake, IV 10 10 10 Intake, Oral 400 100 480 100 520 Patient 143 lb 142 lb Weight Weight Bed scale Bed scale Measurement Method Physical Exam: General: WD/WN male in mild respiratory distress; alert and oriented x 3 HEENT: NC/AT, PERRL, EOMI Neck: +ve JVD, no carotid bruit Heart: RRR w/o murmur Lungs: severely decreased breath sounds with wheezing; no crackles Extremities: no edema Assessment/Plan Assessment/Plan * This patient has a severe exacerbation of COPD. There is evidence of increased RV pressure manifesting as jugular venous distention which is to be expected in the setting of severe lung disease. I do not think this patient has decompensated left or right failure despite the elevated RV pressures. I also do not think that he has symptoms of angina or myocardial ischemia. His chest discomfort is atypical and is sharp and likely is a musculoskeletal pain related to coughing. Finally, this patient had a brief syncopal episode due to decreased venous return in the setting of a coughing fit. Repeated coughing will increase the pressures in the thoracic cavity inhibiting venous return and, since the heart cannot pump out what it does not recieve, the patient syncopized. * Recommend. Aggressive pulmonary toilet with albuterol nebulizers and steroid therapy. He needs to quit smoking. * Normal EF on echo. * Will consider an outpatient stress test when more stable. * Agree with decrease this patient's high dose beta blockers since this drug may be exacerbating his bronchospasm. Continue aspirin and a statin. Continue telemetry? No
[2017-06-25 22:47] VITALS: BP 148/90
[2017-06-26 06:50] VITALS: BP 100/50
--- NOTE | 2017-06-26 07:43 | PN- Housestaff ---
[facility] 06/26/17 0739: Subjective Follow-up For: COPD exacerbation possibly secondary to acute bronchitis Syncope Tele-Events Since Last Visit: Sinus rhythm heart rate between 6382 Subjective: No overnight events. Patient remained afebrile overnight. Seen and examined this morning. He is using 5 L of oxygen and maintaining saturation 91%. Patient denied any chest pain, nausea, vomiting, chills, fever, abdominal pain dysuria. Patient reported that he is feeling better today compared to yesterday. He is at his baseline. She was instructed to use 5 L of oxygen and at rest he was instructed to decrease it as much as possible. He was also instructed to take azithromycin on Sunday after completing the course of cefuroxime. Review of Systems Constitutional: Denies: chills, fever. EENTM: Reports: no symptoms. Cardiovascular: Denies: chest pain, palpitations. Respiratory: Denies: cough, short of breath, sputum production. Gastrointestinal: Reports: no symptoms. Genitourinary: Reports: no symptoms. Musculoskeletal: Reports: no symptoms. Neurological/Psychological: Reports: no symptoms. Objective Last 24 Hrs of Vital Signs/I&O Vital Signs Date Time Temp Pulse Resp B/P B/P Pulse O2 O2 Flow FiO2 Mean Ox Delivery Rate 06/26 0650 98.1 65 20 100/50 91 Nasal 4.0L Cannula 06/26 0000 94 Nasal 5.0L Cannula 06/25 2247 98.4 97 16 148/90 98 Nasal 5.0L Cannula 06/25 1627 96 Nasal 5.0L Cannula 06/25 1400 98.0 87 18 108/64 97 Nasal 5.0L Cannula 06/25 0817 94 Nasal 5.0L Cannula 06/25 0800 94 Nasal 5.0L Cannula 06/25 0757 68 128/78 06/25 0757 68 128/78 Intake & Output 06/26 0800 06/26 0000 06/25 1600 Intake Total 200 600 410 Output Total Balance 200 600 410 Intake, IV 10 Intake, Oral 200 600 400 Patient 143 lb Weight Physical Exam General Appearance: Alert, Oriented X3, Cooperative Skin: No Rashes Skin Temp/Moisture Exam: Warm/Dry Sepsis Skin Exam (color): Normal for Ethnicity HEENT: Atraumatic, PERRLA, EOMI Neck: Supple Cardiovascular: Normal S1, Normal S2 Lungs: Decreased breath sounds b/l Abdomen: Soft, No Tenderness Neurological: Normal Speech, Strength at 5/5 X4 Ext, Normal Tone Extremities: No Edema Assessment/Plan Assessment: 57-year-old male with a PMH significant for COPD on 6 L home O2 at baseline, HTN , paroxysmal A. fib not on anticoagulation by patient's choice, CAD with [place] approximately 4 years ago, CVA approximately 4 years ago, who presents complaining of a one-week history of worsening dyspnea, cough and a syncopal episode. We are following the patient on telemetry floor for following problems: Syncope episode: -Probably due to vasovagal syncope -We will rule out any arrhythmias or acute cardiac ischemic event. -Serial EKGs and troponins x 2 had been negative -Cardiac consult appreciated. Reduced B-Rene in half. -Echocardiogram showed ejection fraction 60% COPD exacerbation: -Possibly secondary to acute bronchitis -Chronic hypercarbic respiratory failure -Patient COPD exacerbation secondary to upper respiratory tract infection -Switched to PO prednisone 50mg daily. Taper slowly with 5mg decrease daily in 10 days. -TRC nebulization -Mucinex -Supplemental oxygen as needed to keep oxygen saturation above 92% -Switched to Ceftin 500 bid per pulm -Influenza test negative -Pulmonology consult appreciated Smoking cessation: -Nicotine patch as needed History of hypertension: -Continue home medications History of BPH: -Continue home medications H/O anxiety; -Given xanax 0.25mg PRN History of A. fib and CAD: -Not on any anticoagulation -Continue home medications DVT prophylaxis: -Mechanical and subcutaneous Lovenox CODE STATUS: DNI Problem List: 1. COPD exacerbation Pain Ratin Pain Location: none Pain Goal: Remain pain free Pain Plan: pain pathway Tomorrow's Labs & Rationales: none Favio Juarez MD 06/26/17 1058: Attending MD Review Statement Attending Statement Attending MD Statement: examined this patient, discuss w/resident/PA/SALES REPRESENTATIVE [employer], agreed w/resident/PA/SALES REPRESENTATIVE [employer], reviewed EMR data (avail) Attending Assessment/Plan: 57M PMH COPD on 6 L nasal cannula oxygen, depression, chest pain, HTN, A. fib, CAD S/P [place], no stents, CVA with no residual weakness admitted with worsening shortness of breath and cough with syncopal episode provoked by coughing fit, in the setting of COPD exacerbation secondary to acute bronchitis. Much better today. Breathing comfortably at rest, requiring 5L with ambulation, saturating 91%. 1. COPD Exacerbation 2. Acute bronchitis 3. Chronic hypoxemic respiratory failure 4. Syncope, most likely vasovagal Plan - Discharge home - Prednisone taper - Continue Azithromyin MW for prophylaxis - Outpatient pulmonary follow up, will follow up at [place] - Instructed by pulmonary to be on 2L oxygen at rest and 5L with exertion, and to monitor home saturation - Continue home medications
[2017-06-26 08:36] VITALS: BP 112/56
--- NOTE | 2017-06-26 09:54 | PN- Pulmonary ---
Subjective HPI/Critical Care Issues: Stable On 5 litres no fever Objective Current Medications: Current Medications Sig/Rebel Start time Last Medication Dose Route Stop Time Status Admin Albuterol Sulfate 3 ML EVERY 4 HRS/AWAKE 06/22 1200 AC 06/26 INH 0835 Albuterol Sulfate 2 PUF Q6P PRN 06/22 1000 AC 06/25 INH 1309 Alprazolam 0.25 MG Q12 PRN 06/23 1830 AC 06/26 PO 06/30 1829 0837 Aspirin Buffered 81 MG DAILY 06/22 1000 AC 06/26 PO 0836 Budesonide/ 2 PUF BID 06/22 1000 AC 06/26 Formoterol Fumarate INH 0837 Cefuroxime Sodium 500 MG Q12H 06/23 1200 AC 06/25 PO 2259 Enoxaparin Sodium 40 MG DAILY 06/22 1000 AC SC Guaifenesin 600 MG Q12 06/22 1000 AC 06/26 PO 0836 Ipratropium [place] 2.5 ML EVERY 4 HRS/AWAKE 06/22 1200 AC 06/26 INH 0835 Melatonin 5 MG AT BEDTIME 06/23 0100 AC 06/25 PO 2259 Metoprolol Succinate 25 MG DAILY 06/26 1000 AC 06/26 PO 0835 Metoprolol Succinate 50 MG DAILY 06/23 1000 DC 06/25 PO 0757 Nicotine 14 MG DAILY 06/22 1000 AC 06/26 TOP 0836 Nicotine 14 MG DAILY 06/22 1000 DC 06/24 TOP 0851 Patient Medication 1 ED ONE ONE 06/26 0830 [facility] ED 06/26 0831 Patient Medication 1 ED ONE ONE 06/25 1515 [place] [facility] 06/25 1516 Prednisone 50 MG DAILY 06/23 1000 AC 06/26 PO 0837 Sodium Chloride 2 SPRAY Q4P PRN 06/22 0930 AC 06/24 IRENE 2002 Tamsulosin HCl 0.4 MG DAILY 06/22 1000 AC 06/26 PO 0836 Vital Signs & I&O Last 24 Hrs of Vitals and I&O: Vital Signs Date Time Temp Pulse Resp B/P B/P Pulse O2 O2 Flow FiO2 Mean Ox Delivery Rate 06/26 0849 97 Nasal 5.0L Cannula 06/26 0836 103 112/56 06/26 0835 102 110/56 06/26 0650 98.1 65 20 100/50 91 Nasal 4.0L Cannula 06/26 0000 94 Nasal 5.0L Cannula 06/25 2247 98.4 97 16 148/90 98 Nasal 5.0L Cannula 06/25 1627 96 Nasal 5.0L Cannula 06/25 1400 98.0 87 18 108/64 97 Nasal 5.0L Cannula Intake & Output 06/26 1600 06/26 0800 06/26 0000 Intake Total 200 600 Output Total Balance 200 600 Intake, Oral 200 600 Patient 143 lb Weight Impression/Plan Impression/Plan Impression/Plan: ABG baseline pco2 45 Note high oxygen sat and pao2 General Appearance aao x 3 Skin Temp/Moisture Exam: Warm/Dry Sepsis Skin Exam (color): Normal for Ethnicity HEENT Atraumatic, PERRLA, EOMI Cardiovascular Regular Rate, Normal S1, Normal S2 Lungs diffuse expiratory wheezing, with prolonged expiratory phase, mild respiratory distress, using accessory muscles this am Abdomen Normal Bowel Sounds, Soft, No Tenderness Neurological Normal Speech, Normal Tone, Sensation Intact Extremities No Clubbing, No Cyanosis, No Edema IMPRESSION Patient is a 57-year-old male with a PMH significant for COPD on 6 L home O2 at baseline, HTN, paroxysmal A. fib not on anticoagulation by patient's choice, CAD with MD approximately 4 years ago, CVA approximately 4 years ago, who presents complaining of a one-week history of worsening dyspnea, cough and a syncopal episode. ISSUES Improving Acute COPDE with chronic hypoxic and hypercarbic resp failure with episodic wheezing. His baseline pco2 is 45 and would not qualify for bipap Resolved Syncope Sig baseline hypoxia on 5 litres- needs to reduce this for oxygen sat of 92 Previous stroke, afib, heart disease, smoking, Prior hypoglycemic episode REC Cont nebs atc duoneb Po prednisone 50 mg nd wean to 5 mg in 10 days Low dose betablocker and if needed can start dilt as his echo is stable and may not need betablocker After his abx course pt can start azithro 250 mwf to prevent copde Ok to dc smoking cessation counselling done Will follow Pt is dni
[2017-06-26] MEDS ORDERED: PREDNISONE5 M1 PO ×3 (10:28→12:25)
[2017-06-26] MEDS ORDERED: TOPROL XL25 M1 PO ×4 (10:28→12:28)
[2017-06-26] MEDS ORDERED: AZITHROMYCIN250 M1 PO ×5 (10:30→12:28)
[2017-06-26] MEDS ORDERED: CEFUROXIME250 M1 PO ×3 (10:36→12:28)
[2017-06-26] MEDS ORDERED: XANAX0.25 M1 PO ×3 (10:38→12:27)
== END 2017-06-26 13:10 | DRG 140 ==
LOC: ERH 19:58 → 1NO 22:19 → ERHI 22:19 → ENRESERV 06-22 00:24 → CANRESERV 06-22 00:24 → EDBEDREQ 06-22 03:46 → ENRESERV 06-22 03:55 → 1NO 06-22 04:34 → ENPENDDIS 06-26 11:35 → ENTRNSPT 06-26 12:12 → EDTRNSPTSTS 06-26 12:20 → EDTRNSPT 06-26 12:20 → CMPTRNSPT 06-26 12:47 → 1NO 06-26 13:10
PROVIDERS: Emergency Medicine; Student in an Organized Health Care Education/Training Program
DX: J44.1 Chronic obstructive pulmonary disease with (acute) exacerbation (principal); Z99.81 Dependence on supplemental oxygen; I48.0 Paroxysmal atrial fibrillation; J96.11 Chronic respiratory failure with hypoxia; J96.12 Chronic respiratory failure with hypercapnia; J44.0 Chronic obstructive pulmonary disease with (acute) lower respiratory infection; J20.9 Acute bronchitis, unspecified; I25.10 Atherosclerotic heart disease of native coronary artery without angina pectoris; I25.2 Old myocardial infarction; F12.90 Cannabis use, unspecified, uncomplicated; R55 Syncope and collapse; N40.0 Benign prostatic hyperplasia without lower urinary tract symptoms; F32.9 Major depressive disorder, single episode, unspecified; Z87.891 Personal history of nicotine dependence; Z86.73 Personal history of transient ischemic attack (TIA), and cerebral infarction without residual deficits
CPT/HCPCS: 1NSP; ERO; 36592; 71045; 80307; 82436; 87040; 87070; 87449; 87450; 87804; 87804-59; 93005; 93010; 93306; 96374; 96375; 99291; G0480; J0456; J0696; J1650; J2920; J2930; J3490; J7060; J7508